=== PATIENT | female | born 1945 | race Caucasian/White ===

== ENCOUNTER 2016-11-20 16:12 | Inpatient (IN) | payer MEDICARE, OTHER ==
[~2016-11-20] VITALS: Ht 165.1 cm; Wt 129.9 kg
[~2016-11-20 16:12] MED LIST: CHOL5000 PO; CREST10T PO; GLIP10TA10 PO; HYDR25TA4 PO; LOSA100T3 PO; MELO7.5T13 PO; METF10002 PO; OMEG-38 PO; PIOG45TA PO; SITA100T12 PO; VITA1CAP PO
[2016-11-20 16:14] VITALS: BP 146/70; PULSE 80; RESP 16; O2SAT 98
[2016-11-20] MEDS ORDERED: 0.9% Sodium Chloride 1,000 ML IV ONE (17:52)
[2016-11-20] MEDS ORDERED: Ondansetron 2 mg/mL 2 mL Inj IVPUSH ONE (17:55)
--- NOTE | 2016-11-20 17:58 | ED.REPORT ---
HPI-General Illness Date of Service Nov 20, 2016 ED Provider: Bryson Henry PA-C She is a 71-year-old female with a history of type II diabetes who presents at the urging of her physician for hyponatremia. She was seen yesterday at [facility] urgent care for cold symptoms. She was diagnosed with sinusitis and prescribed doxycycline. The physician noticed that her sodium level was 121 and referred her to the emergency department. On presentation she continues to complain of cold symptoms including rhinorrhea, stuffy nose, sore throat, nausea and vomiting. She reports 3-4 episodes of nonbloody vomiting and many episodes of watery diarrhea, neither with blood. She states that she "cannot keep any down." She had an episode of dizziness last night when she stood up. She describes her dizziness as an unsteadiness as opposed to the world spinning or presyncope. She reports feeling very fatigued. Denies seizures. Her son denies that she is behaving differently, reduced level of consciousness. Nursing Notes Stated Complaint: FLU SYMPTOMS Chief Complaint: FLU/Cold Symptoms Nursing Notes Reviewed: Yes Allergies: Coded Allergies: atorvastatin (Unverified Allergy, Severe, RASH, 11/20/16) lisinopril (Unverified Allergy, Severe, COUGH, 11/20/16) Scheduled Cholecalciferol (Vitamin D3) (Vitamin D3) 5,000 Unit Capsule 5,000 UNIT PO DAILY Glipizide (Glipizide) 10 Mg Tablet 10 MG PO BIDWM Hydrochlorothiazide (Hydrochlorothiazide) 25 Mg Tablet 25 MG PO DAILY Losartan Potassium (Cozaar) 100 Mg Tablet 100 MG PO DAILY Metformin (Metformin) 500 Mg Tablet 1,500 MG PO DAILYWD Take metformin 1000 mg PO w/ breakfast and 1500 mg PO with dinner Metformin (Metformin) 500 Mg Tablet 1,000 MG PO DAILYWM Take metformin 1000 mg PO w/ breakfast and 1500 mg PO with dinner Kilauea-3/Dha/Epa/Fish Oil (Fish Oil 1,000 mg Softgel) 1 Each Capsule 1 EACH PO BIDWM Pioglitazone (Actos) 45 Mg Tablet 45 MG PO DAILY Rosuvastatin Calcium (Crestor) 10 Mg Tablet 10 MG PO DAILY Sitagliptin Phos (Januvia) 100 Mg Tablet 100 MG PO HS Vitamin B Complex & Vit C No.3 (B Complex with Vitamin C) 1 Each Capsule 1 EACH PO DAILY Scheduled PRN Acetaminophen (Acetaminophen) 325 Mg Tablet 325-650 MG PO Q4H PRN PRN For Fever Carboxymethylcellulos/Glycerin (Refresh Optive Eye Drops) 15 Ml Drops 2 DROP BOTH_EYES Q2H PRN PRN dry eyes General Time Seen by MD: 17:38 Chief Complaint Other (hyponatremia) Past Medical History Smoking History Unknown if Ever Smoker Review of Systems General: Denies fever, chills, malaise. HEENT: Denies congestion, headache, sore throat. Respiratory: Denies dyspnea, cough, shortness of breath, wheezing. Cardiovascular: Denies chest pain, palpitations. Gastrointestinal: Admits vomiting, diarrhea, abdominal pain. Genitourinary: Admits dysuria. Denies frequency, urgency, hematuria. Otherwise as noted in HPI. Physical Exam General: Well appearing, well developed, obese, no acute distress. Head: Atraumatic, normocephalic. Eyes: No scleral icterus or injection. No discharge. Vision grossly intact. ENT: Voice clear, hearing grossly intact. Respiratory: Regular rate and rhythm. Breath sounds present, clear to auscultation and equal bilaterally. No respiratory distress. No increased work of breathing, speaks in complete sentences. Cardiovascular: Regular rate and rhythm, without murmur, gallop or rub. No pedal edema. Gastrointestinal: Obese abdomen non-tender without guarding or rebound. Bowel sounds normoactive. Skin: Warm and dry. Neurological: Grossly nonfocal. Psychological: Alert and oriented. Speech appropriate, linear and logical. Behavior appropriate. Vital Signs Vital Signs Date Time Temp Pulse Resp B/P Pulse Ox O2 Delivery O2 Flow Rate FiO2 11/20/16 22:17 75 15 147/62 98 Room Air 11/20/16 18:15 74 16 146/60 97 Room Air 11/20/16 16:14 36.1 80 16 146/70 98 Room Air Initial VS: Reviewed, Vital signs normal Interpretation & Diagnostics Lab Results Interpretation Result Diagram: 11/20/16225411/20/162254 Test 11/20/16 21:03 11/20/16 22:50 11/20/16 22:55 11/20/16 23:00 Blood Urea Nitrogen 11mg/dL (8-27) Creatinine 0.59mg/dL (0.57-1.00) Estimat Glomerular Filtration Rate 144mL/min (>59) Glucose Level 126mg/dL (60-99) Calcium Level 7.9mg/dL (8.5-10.1) Total Bilirubin 0.5mg/dL (0.0-1.2) Aspartate Amino Transf (AST/SGOT) 95U/L (0-50) Alanine Aminotransferase (ALT/SGPT) 82U/L (0-32) Alkaline Phosphatase 78U/L (25-165) Total Protein 7.2g/dL (6.4-8.4) Albumin 3.2g/dL (3.4-5.0) Urine Random Sodium 40mEq/L Urine Random Potassium 39.5mEq/L Urine Random Chloride 50mEq/L White Blood Count 4.4th/mm3 (3.8-10.1) Red Blood Count 4.44mil/mm3 (3.90-5.20) Hemoglobin 13.5g/dL (12.0-15.6) Hematocrit 38.7% (35.0-46.0) Mean Corpuscular Volume 87.2fL (81-100) Mean Corpuscular Hemoglobin 30.4pg (27.0-35.0) Mean Corpuscular Hemoglobin Concent 34.9% (32.0-37.0) Red Cell Distribution Width 12.9% (12.3-15.4) Platelet Count 184bil/L (150-400) Neutrophils (%) (Auto) 60.1% (40-74) Lymphocytes (%) (Auto) 21.0% (14-46) Monocytes (%) (Auto) 18.3% (4-12) Eosinophils (%) (Auto) 0.2% (0-5) Basophils (%) (Auto) 0.2% (0-3) Band Neutrophils % 0% (1-5) Prothrombin Time 10.2sec (8.1-12.5) Prothromb Time International Ratio 0.95ratio Activated Partial Thromboplast Time 31.5sec (22.8-33.0) Sodium Level 117mEq/L (134-144) Potassium Level 3.5mEq/L (3.5-5.2) Chloride Level 81mEq/L (97-108) Carbon Dioxide Level 25mmol/L (18-29) Magnesium Level 1.4mg/dL (1.6-2.6) Hold Limon Top Tube Received (Received) Urine Color Yellow (YELLOW) Urine Appearance Clear (CLEAR,HAZY) Urine pH 6.5 (5.0-8.0) Urine Specific [place] 1.025 (1.003-1.035) Urine Protein 100mg/dL (NEG,TRACE) Urine Glucose (UA) Negativemg/dL (NEGATIVE) Urine Ketones Negativemg/dL (NEGATIVE) Urine Occult Blood Moderate (NEGATIVE) Urine Nitrite Negative (NEGATIVE) Urine Bilirubin Negative (NEGATIVE) Urine Urobilinogen Normalmg/dL (NORMAL) Urine Leukocyte Esterase Trace (NEGATIVE) Urine RBC 0-2/hpf (0-2) Urine WBC 0-5/hpf (0-5) Urine Epithelial Cells Occasional/hpf (NONE-MOD) Urine Crystals Amorphous urates (NONE Urine Bacteria Moderate/hpf (NONE-FEW) Urine Hyaline Casts None/lpf (NONE) Urine Granular Casts None seen (NONE SEEN) Urine Waxy Casts None seen (NONE SEEN) Urine Red Blood Cell Casts None seen (NONE SEEN) Urine White Blood Cell Casts None seen (NONE SEEN) Urine Mucus Present (None Seen) Urine Trichomonas None seen (NONE SEEN) Urine Yeast None (NONE SEEN) Urinalysis Comment None Urine Culture Reflexed Indicated Re-Eval/Medical Decision Med Decision/Clinical Course 71-year-old referred with hyponatremia, that is actually worsened despite 2 L of normal saline here. Background history not immediately available includes cirrhosis of the liver. She denies current alcohol use. Urine electrolytes pending to evaluate for SIADH. She is admitted now for more IV therapy and evaluation of the source of her hyponatremia. Time of Eval: 23:37 Re-Evaluation/Progress Note: Patient reports feeling significantly better following 1 L of normal saline. She says she has more energy. Ordered CMP to reassess sodium level. Time of Eval: 22:18 Re-Evaluation/Progress Note: Patient rechecked by Dr. Gracia after transfer of care. Discussed with patient lab results, diagnosis, and plan for admit. Patient agrees with plan for care and all questions were addressed. Consultation : Referral / Consult Name: Pearl Adorno MD Consulted With: Hospitalist Call Returned at: 22:34 Product Lead: Agrees with eval, Agrees with plan, Accepts admit Counseled Regarding: Diagnosis, Lab results, Need for admission Discharge & Departure Shift Change Sign-Out Patient Care Transferred: Yes (Dr. Gracia) Discussed Complaint(s): Yes Laboratory Evaluation: Done, results pending Response to Therapy: Improved Primary Impression: Hyponatremia Additional Impressions: Upper respiratory infection Sinusitis Disposition: ADMITTED TO HOSPITAL Discharge Condition All VS Reviewed: Yes Condition: Improved Referrals: Catherine Cuellar MD (PCP) Scribe Attestation Portions of this note were transcribed by Valorie Malloy. I, Dr. Gracia, personally performed the history, physical exam, and medical decision-making; I reviewed and confirmed the accuracy of the information in the transcribed note. Signed by: Mihai Moreira, 11/21/2016, 00:05 copies to: Catherine Cuellar MD, Seth PA-C Nov 20, 2016 17:58 VALORIE MALLOY Nov 20, 2016 23:57 Artis Gracia MD Nov 21, 2016 06:40
[2016-11-20 18:15] VITALS: BP 146/60; PULSE 74; RESP 16; O2SAT 97
[2016-11-20 22:17] VITALS: BP 147/62; PULSE 75; RESP 15; O2SAT 98
[2016-11-20] MEDS ORDERED: 0.9% Sodium Chloride 1,000 ML IV SCH (22:30)
[2016-11-20 23:08] LABS: BASOPHILS % (AUTO) 0.2 % (0-3); EOSINOPHILS % (AUTO) 0.2 % (0-5); MONOCYTES % (AUTO) 18.3 % (4-12); Mean Corpuscular Hemoglobin 30.4 pg (27.0-35.0); Mean Corpuscular Volume 87.2 fL (81-100); NEUTROPHILS % (AUTO) 60.1 % (40-74); Platelet Count 184 bil/L (150-400)
[2016-11-20 23:10] LABS: APPEARANCE,URINE CLEAR (CLEAR,HAZY); COLOR,URINE YELLOW (YELLOW); OCCULT BLOOD,URINE MODERATE (NEGATIVE); PH,URINE 6.5 (5.0-8.0); UROBILINOGEN,URINE NORMAL (NORMAL)
[2016-11-20 23:27] LABS: INR 0.95 ratio
[2016-11-20] MEDS ORDERED: Alum-Mag Hydrox-Simeth 30 mL Suspension PO PRN (23:30)
[2016-11-20] MEDS ORDERED: Ondansetron 2 mg/mL 2 mL Inj IVPUSH PRN (23:30)
[2016-11-20] MEDS ORDERED: Polyethylene Glycol (PEG) 17 Gm Powder PO PRN (23:30)
[2016-11-20 23:38] LABS: Magnesium 1.4 mg/dL (1.6-2.6)
[2016-11-21] VITALS (9 sets, daily range): BP systolic 132–188; BP diastolic 64–83; PULSE 67–81; RESP 14–18; O2SAT 94–97
[2016-11-21] MEDS ORDERED: METF500T4 PO ×2 (00:49)
[2016-11-21] MEDS ORDERED: ACET325T51 PO (00:50)
[2016-11-21] MEDS ORDERED: VITA1CAP16 PO (00:50)
[2016-11-21] MEDS ORDERED: CARB15DR2 BOTH_EYES (00:53)
--- NOTE | 2016-11-21 01:05 | NUR ---
Admit Pt arrived on stretcher from the ED with all belongings. Moved from stretcher to bed independently, alert and oriented x4. Pt on RA sat at 96%. Oriented to room and call light, will monitor.
[2016-11-21] MEDS ORDERED: Magnesium Chloride SR 64 mg ER24 Tablet PO ONE (01:30)
[2016-11-21] MEDS: Heparin 5,000 Unit/mL Inj SUBQ SCH ×4 (02:48→23:56)
[2016-11-21] MEDS: 0.9% Sodium Chloride 1,000 ML IV SCH ×3 (02:48→20:32)
[2016-11-21] MEDS ORDERED: Labetalol 5 mg/mL 4 mL Inj IVPUSH ONE (04:40)
[2016-11-21] MEDS ORDERED: Glucose 40% Oral Gel 15 Gm Tube PO PRN (06:10)
--- NOTE | 2016-11-21 06:24 | PCM.HPMED ---
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 On November 10 patient started to develop mild cold symptoms including runny nose and cough. At this time she was attending a [email or web address] in [place]. Upon returning home from a convention on November 15 patient developed vomiting, nausea, and diarrhea. Initially she was having 1-2 episodes per day of diarrhea and now it is 3-5 episodes per day. Patient complains of a sore low back. She does not report headache, sore throat, shortness of breath, dysuria, or edema. Upon presentation to the emergency department patient received 1 L normal saline , and ondansetron. She reports feeling much better after this, her CMP was checked and found to have a sodium of 118, an additional liter of fluid was given but prior to being complete sodium was rechecked and noted to be 117. Patient feels improved since initial presentation, and continues to mentate normally. Review of Systems: A comprehensive review of systems was conducted with the patient and found to be negative except as above in the History of Present Illness. Allergies Coded Allergies: atorvastatin (Unverified Allergy, Severe, RASH, 11/20/16) lisinopril (Unverified Allergy, Severe, COUGH, 11/20/16) Home Medications Maria M Anthony. [id number] 11/20/2016 11:50 AM 09/12 Start Date Medication Directions Stop Date 08/07/2016 Actos 45 mg tablet TAKE ONE TABLET BY MOUTH ONCE DAILY 06/21/2015 Allerclear 10 mg tablet take 1 tablet by oral route every day as needed for seasonal allergies 08/07/2016 Cozaar 100 mg tablet TAKE ONE TABLET BY MOUTH ONCE DAILY 11/20/2016 doxycycline hyclate 100 mg capsule take 1 capsule by oral route 2 times every day 09/18/2016 econazole 1 % topical cream apply by topical route 2 times every day to the affected and surrounding areas of skin 05/02/2016 ferrous sulfate 325 mg (65 mg iron) tablet take 1 tablet by oral route every day 08/07/2016 glipizide 10 mg tablet TAKE ONE TABLET BY MOUTH TWICE DAILY 08/07/2016 hydrochlorothiazide 25 mg tablet TAKE ONE TABLET BY MOUTH ONCE DAILY 08/07/2016 Januvia 100 mg tablet TAKE ONE TABLET BY MOUTH ONCE DAILY 08/07/2016 metformin 500 mg tablet TAKE TWO TABLETS BY MOUTH IN THE MORNING AND THREE TABLETS BY MOUTH IN THE EVENING 05/02/2016 multivitamin with minerals tablet take 1 tablet by oral route every day with food 01/11/2016 Gelato Fiasco Ultra Test strips test blood sugar 1 by Subcutaneous route every day 10/22/2016 rosuvastatin 10 mg tablet take 1 tablet by oral route every day 08/06/2016 triamcinolone acetonide 0.5 % topical ointment apply by topical route 2 times every day a thin layer to the affected area(s) 06/07/2009 VITAMIN B COMPLEX 08/07/2016 Vitamin D3 5,000 unit tablet take 2 tablet by oral route every week PMH 1. Liver Cirrhosis presumably due to Connell 2. active sleep apnea, has CPAP but does not use it 3. Osteopenia 4. Hyperlipidemia 5. Diabetes mellitus type II, non-insulin using Surgical History 1. 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 [employer] Hx Alcohol Use: Yes (social) Hx Substance Use: No Hx Tobacco Use: Yes Smoking Status: Former Smoker (1/3 pack per day) Years of Smokin Living Arrangement: with Family Exam Vital Signs Vital Sign - Last Date Time Temp Pulse Resp B/P Pulse Ox O2 Delivery O2 Flow Rate FiO2 11/21/16 00:32 36.8 78 14 132/64 97 Room Air Intake and Output 11/20/16 11/20/16 11/21/16 Cumulative From/Thru 15:00 23:00 07:00 11/20/16 16:14 - 11/21/16 00:01 Intake Total 1000 ml 1000 ml 2000 ml Balance 1000 ml 1000 ml 2000 ml Intake Oral 1000 ml 1000 ml IV Total 1000 ml 1000 ml Exam General: No acute distress, obese, well-developed, well-nourished, appropriately interactive HEENT: Normocephalic, atraumatic. External ears without defect. Pupils equal, round, and reactive to light and accommodation. Anicteric sclerae, moist conjunctivae, and no lid lag. Oropharynx free of erythema and cobble stoning with moist mucosa. Neck: Supple with full range of motion. No lymphadenopathy or thyromegaly. Cardiovascular: Regular rate and rhythm with no murmurs, rubs, or gallops appreciated Pulmonary: Clear to auscultation bilaterally with no crackles, wheezes, or rhonchi. Normal respiratory effort with no use of accessory muscles. Abdomen: Bowel tones present, Obese, soft, nontender, nondistended. No hepatosplenomegaly or masses appreciated. Extremities: No clubbing, cyanosis, edema, or lymphadenopathy appreciated. Skin: Normal temperature, turgor, and texture; no rash, ulcers, or subcutaneous nodules appreciated. Neurological: Cranial nerves grossly intact. Normal muscle strength, tone, and bulk. No known gait impairment. Psychiatric: Normal mood and affect. Alert and oriented to person, place, and time. Lab and Diagnostics Result Diagram: 11/20/16225411/20/162254 X-Rays, CTs and MRIs PROCEDURE: X-RAY ACUTE ABDOMINAL SERIES ([id number]) INDICATIONS: NON-INTRACTABLE VOMITING WITH NAUSEA TECHNIQUE: One view chest and two views of the abdomen were acquired. COMPARISON: [facility], CR, CHEST 2VW, 06/13/2007, 16:04. FINDINGS: Surgical changes and devices: None. Chest: Lungs are clear. Heart size is normal. No pleural effusions. No pneumoperitoneum. Abdomen: Bowel gas pattern is normal. No suspicious calcifications. Visualized solid organ contours appear normal. Bones: No suspicious bony lesions. IMPRESSION: No acute process. Dictated by: Thomas Armendariz M.D. 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 1. Hyponatremia, present on admission, acute - Serum sodium tested at urgent care the day prior to presenting to the emergency department was 121, patient had 1 L normal saline upon arrival sodium was rechecked and found to be 118 - Patient mentating normally, suspecting subacute presentation however outpatient record review reveals normal serum sodium levels as recently as April 2016. - Etiology of hyponatremia unclear at this time, it may be a multifactorial process. Possible contributors include loss of electrolytes through vomiting and diarrhea, SIADH from pulmonary infection, thiazide related hyponatremia though this is a chronic medication recent illness could have precipitated effect. - Urine sodium, Serum and urine osmolality are ordered - Due to history of vomiting and diarrhea patient likely hypovolemic therefore normal saline 125 mls per hour infusing - Hold thiazide diuretic 2. Diabetes mellitus type II, non-insulin using, present on admission, chronic - Hemoglobin A1c 6.1 08/07/2016 - Hold home medications - Low dose lispro correctional insulin 3. Hypertension, present on admission, acute on chronic - Continue Cozaar - Treated with IV labetalol for systolic pressure greater than 180 4. Nausea vomiting diarrhea, present on admission, acute - Fluid resuscitation as above - Zofran for nausea - Stool PCR for infectious source - Contact precautions 5. Cough and rhinorrhea, present on admission, acute - Respiratory viral PCR - Droplet precautions Chronic conditions, present on admission: Cirrhosis of the liver due to CONNELL -AST 95, ALT 82, alkaline phosphatase 78 Obstructive sleep apnea - Patient does not use CPAP due to cold air, consider respiratory therapy evaluation for outpatient referral for CPAP evaluation. Hyperlipidemia - Restart Crestor upon discharge Acetaminophen for mild pain when necessary. Bowel regimen Senna and MiraLAX PRN. Zofran when necessary for nausea and vomiting. DVT prophylaxis with sub cutaneous heparin Patient was admitted under inpatient status with expected length of stay greater than 2 midnights due to severity of presenting symptoms, risk of adverse event, and complexity of treatment plan. Pain Evaluation: Adequate Pain Control GI Prophylaxis: Not indicated VTE Prophylaxis: Sub-Q Heparin (Unfractionated) VTE Mechanical Devices: Intermittant Pneumatic CD Resuscitation Status: CPR: Attempt Resuscitation Attending Statement pt seen and examined by myself and agree with above plan. copies to: Catherine Cuellar MD, Erika R DO Nov 21, 2016 00:34 Pearl Adorno MD Nov 24, 2016 14:17
[2016-11-21 07:19] LABS: BASOPHILS % (AUTO) 0.2 % (0-3); EOSINOPHILS % (AUTO) 0 % (0-5); Mean Corpuscular Volume 85.1 fL (81-100); NEUTROPHILS % (AUTO) 63.1 % (40-74); Platelet Count 135 bil/L (150-400)
[2016-11-21] MEDS: Insulin LISPRO 300 Unit/3 mL Inj SUBQ SCH ×4 (08:00→21:39)
[2016-11-21] MEDS ORDERED: Influenza (Adult) Vaccine 0.5 mL Syringe IM ONE (08:30)
[2016-11-21] MEDS ORDERED: Magnesium Sulf 2 Gm/50mL Water 2 GM in IV Premix 1 EACH IV ONE (10:50)
[2016-11-21] MEDS ORDERED: Potassium Chloride 20 mEq SR Tablet PO ONE (14:15)
--- NOTE | 2016-11-21 15:20 | NUR ---
spiritual care: pt request conversational visit. pt shared personal history and professional life. Pt expressed little concern about her medical concern, confidence in her recovery and eagerness for discharge. Planning professional travel. pleasant, engaged. Pt agreeable for prayer and shared that she valued 4 square background from childhood.
--- NOTE | 2016-11-21 16:08 | PCM.PNMED ---
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 Telemetry overnight showed sinus rhythm in 70-80s. Today, she reports that she continues to have diarrhea. She had 2 loose bowel movements today. She no longer has nausea and vomiting. She has a cough and nasal congestion. She had sick exposures at work and at a conference in [place]. Exam Vital Signs Vital Sign - Last Date Time Temp Pulse Resp B/P Pulse Ox O2 Delivery O2 Flow Rate FiO2 11/21/16 10:27 36.8 73 16 146/74 95 Room Air Intake and Output 11/20/16 11/20/16 11/21/16 Cumulative From/Thru 15:00 23:00 07:00 11/20/16 16:14 - 11/21/16 06:14 Intake Total 1000 ml 1100 ml 2100 ml Output Total 800 ml 800 ml Balance 1000 ml 300 ml 1300 ml Intake Oral 1000 ml 100 ml 1100 ml IV Total 1000 ml 1000 ml Output Urine Total 800 ml 800 ml # Bowel Movements 1 1 Exam General: No acute distress, obese, well-developed, well-nourished, appropriately interactive HEENT: Normocephalic, atraumatic. External ears without defect. Anicteric sclerae, moist conjunctivae, and no lid lag. Neck: Supple with full range of motion. . Cardiovascular: Regular rate and rhythm with no murmurs, rubs, or gallops appreciated Pulmonary: Clear to auscultation bilaterally with no crackles, wheezes, or rhonchi. Normal respiratory effort with no use of accessory muscles. Abdomen: Bowel tones present, Obese, soft, nontender, nondistended. Extremities: No clubbing, cyanosis, edema, or lymphadenopathy appreciated. Skin: Normal temperature, turgor, and texture; no rash, ulcers, or subcutaneous nodules appreciated. Neurological: Cranial nerves grossly intact. Normal muscle strength, tone, and bulk. Psychiatric: Normal mood and affect. Alert and oriented to person, place, and time. IVs and Medications Medications Reviewed: Medications were reviewed in detail Lab and Diagnostics Result Diagram: 11/21/16 0650 11/21/16 0650 X-Rays, CTs and MRIs PROCEDURE: X-RAY ACUTE ABDOMINAL SERIES ([id number]) INDICATIONS: NON-INTRACTABLE VOMITING WITH NAUSEA TECHNIQUE: One view chest and two views of the abdomen were acquired. COMPARISON: [facility], CR, CHEST 2VW, 06/13/2007, 16:04. FINDINGS: Surgical changes and devices: None. Chest: Lungs are clear. Heart size is normal. No pleural effusions. No pneumoperitoneum. Abdomen: Bowel gas pattern is normal. No suspicious calcifications. Visualized solid organ contours appear normal. Bones: No suspicious bony lesions. IMPRESSION: No acute process. Dictated by: Thomas Armendariz M.D. 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 1. Influenza B virus -Started 10 day course of Tamiflu -Droplet precautions -Symptomatic care as below 2. Hyponatremia, present on admission, acute - Serum sodium tested at urgent care the day prior to presenting to the emergency department was 121, patient had 1 L normal saline upon arrival sodium was rechecked and found to be 118 - Patient mentating normally, suspecting subacute presentation however outpatient record review reveals normal serum sodium levels as recently as April 2016. - Etiology of hyponatremia unclear at this time, it may be a multifactorial process. Possible contributors include loss of electrolytes through vomiting and diarrhea, SIADH from pulmonary infection, thiazide related hyponatremia though this is a chronic medication recent illness could have precipitated effect, and history of CONNELL. - Due to history of vomiting and diarrhea patient likely hypovolemic therefore normal saline 75 mls per hour infusing - Hold thiazide diuretic 3. Hypomagnesium -Magnesium 1.5 this morning -Repletion with 64 mg PO and 2 g IV magnesium -Monitor with labs 4. Hypokalemia -Potassium 3.1 this morning -Repletion with 40 meq potassium chloride PO -Monitor with labs 5. Diabetes mellitus type II, non-insulin using, present on admission, chronic - Hemoglobin A1c 6.1 08/07/2016 - Hold home medications - Low dose lispro correctional insulin 6. Hypertension, present on admission, acute on chronic - Continue Cozaar - Treated with IV labetalol for systolic pressure greater than 180 7. Nausea vomiting diarrhea, present on admission, acute - Fluid resuscitation as above - Zofran for nausea - Stool PCR for infectious source negative - Contact precautions - See above 8. Cough and rhinorrhea, present on admission, acute - Respiratory viral PCR - Droplet precautions Chronic conditions, present on admission: Cirrhosis of the liver due to CONNELL -AST 95, ALT 82, alkaline phosphatase 78 initially -Continue to monitor Obstructive sleep apnea - Patient does not use CPAP due to cold air, consider respiratory therapy evaluation for outpatient referral for CPAP evaluation. Hyperlipidemia - Restart Crestor upon discharge Acetaminophen for mild pain when necessary. Bowel regimen Senna and MiraLAX PRN. Zofran when necessary for nausea and vomiting. DVT prophylaxis with sub cutaneous heparin GI Prophylaxis: Not indicated VTE Prophylaxis: Sub-Q Heparin (Unfractionated) VTE Mechanical Devices: Intermittant Pneumatic CD Resuscitation Status: CPR: Attempt Resuscitation Attending Statement The patient was seen and examined together with Resident / House-staff on and I agree with the history, exam and plan as outlined in the note above. Ml Lagos DO Nov 21, 2016 14:15 Cecilio Newberry Nov 21, 2016 17:37
[2016-11-21 18:10] LABS: Magnesium 2.2 mg/dL (1.6-2.6)
--- NOTE | 2016-11-21 20:59 | NUR ---
Case Management: IMM explained at 2039, all questions answered. Signed original placed in chart, copy given to patient. Stefany Gilbert RN
--- NOTE | 2016-11-22 00:55 | NUR ---
Pain/telemetry Pt c/o lower back discomfort. K-pad applied to lower back which was helpful per pt. Pt later requested Tylenol for general discomfort. "I just can't get comfortable." Tylenol given and the pt appears to be asleep without s/sx of distress. Tele: SR 60-70s per telemonitor. care ongoing.
[2016-11-22 01:27] VITALS: BP 126/76; PULSE 68; RESP 18; O2SAT 97
[2016-11-22 04:32] VITALS: BP 137/76; PULSE 74; RESP 18; O2SAT 96
[2016-11-22 05:57] VITALS: PULSE 70
[2016-11-22 07:15] LABS: BASOPHILS % (AUTO) 0.3 % (0-3); EOSINOPHILS % (AUTO) 0.3 % (0-5); MONOCYTES % (AUTO) 19.1 % (4-12); Mean Corpuscular Hemoglobin 30.3 pg (27.0-35.0); Mean Corpuscular Volume 89.7 fL (81-100); NEUTROPHILS % (AUTO) 50.8 % (40-74); Platelet Count 148 bil/L (150-400)
[2016-11-22 08:00] VITALS: PULSE 78
[2016-11-22] MEDS: Insulin LISPRO 300 Unit/3 mL Inj SUBQ SCH ×2 (08:00→11:40)
[2016-11-22] MEDS: Heparin 5,000 Unit/mL Inj SUBQ SCH (08:08)
[2016-11-22 09:28] VITALS: BP 144/81; PULSE 75; RESP 18; O2SAT 94
[2016-11-22] MEDS ORDERED: OSLT75C PO (12:32)
--- NOTE | 2016-11-22 12:46 | PCM.DIMED ---
Mariaelena Ralph DO 11/22/16 1246: Discharge Instructions Date of Service Nov 22, 2016 Dates of Hospitalization Nov 20, 2016 at 23:32 Discharge Diagnosis Discharge Diagnosis 1. Influenza B virus 2. Hyponatremia, present on admission, acute 3. Hypomagnesium 4. Hypokalemia 5. Diabetes mellitus type II, non-insulin using, present on admission, chronic 6. Hypertension, present on admission, acute on chronic 7. Nausea vomiting diarrhea, present on admission, acute Medication Instructions Please take all of your Tamiflu pills as instructed. You need to complete ten days of treatment. Diet Diabetic Activity Limited until seen by PCP Call your provider Fever or Chills, Shortness of breath Patient Instructions Your sodium is back to normal. Please have a BMP rechecked at the start of next week. Please stop taking your hydrochlorothiazide. This likely contributed to your low sodium. Your PCP may need to add in another blood pressure medication to take it's place. Please follow up with your PCP at the start of next week. If you start to feel dizzy, confused, unstable in your gate please seek medical attention immediately. Follow-up Provider: Catherine Cuellar MD Follow-up with PCP in: 1 week Vipul Delarosa MD 11/22/16 1300: Discharge Instructions Attending's Statement The patient was seen and examined together with Dr. Ralph on 11/22 and I agree with the history, exam and plan as outlined in the note above. Mariaelena Ralph DO Nov 22, 2016 12:46 Vipul Delarosa MD Nov 22, 2016 13:00
[2016-11-22 13:29] VITALS: BP 151/84; PULSE 74; RESP 18; O2SAT 95
--- NOTE | 2016-11-22 13:38 | NUR ---
Social Work: Initial Assessment / D/C Data: Pt is a 71 y/o female admitted for hyponatremia. Pt's PCP is Dr Cuellar, pt's insurance is Medicare with [employer] [facility]. EMR reviewed. Readmit score is 2, low. D/C orders are in. LIVESTOCK TRUCKER met with pt at bedside, role explained. Pt states she lives in [place] in a single story home with her where she uses no DME. Pt states that she does not drive, has no hx of HH or SNF, no LTC or VA benefits, and is not a caregiver. Pt does not have AD/DPOA and declined info. No further d/c planning needs at this time. LIVESTOCK TRUCKER will continue to follow if needs arise. Assessment: Pt who is independent at baseline. Plan: Pt will d/c home via POV today. No further d/c planning needs at this time. LIVESTOCK TRUCKER will continue to follow if needs arise. VANCE Andres Addendum: 11/22/16 at 1342 by NAGA LAIRD Amended: Links added.
--- NOTE | 2016-11-22 14:35 | NUR ---
Discharge Pt d/c home with daughter in-law at 1418. Pt denied having pain, VSS. Discharge info discussed with pt and repeated to daughter in law when she arrived-per pt request. f/u OP requisition given for repeat [employer] to be done next week. Pt states she is flying to [place] in 3 days and will get it done there on Friday. IV d/c prior to leaving. All personal belongings left with pt.
--- NOTE | 2016-11-22 18:54 | PCM.DC.MED ---
Discharge Summary Date of Service Nov 22, 2016 Dates of Hospitalization Date of Hospital Admission Nov 20, 2016 at 23:32 Date of Discharge: Nov 22, 2016 Providers: Admitting Physician: Pearl Adorno MD Primary Care Physician: Catherine Cuellar MD Attending Physician: Pearl Adorno MD Diagnosis at Time of Discharge Diagnosis at Time of Discharge 1. Influenza B virus 2. Hyponatremia, present on admission, acute 3. Hypomagnesium 4. Hypokalemia 5. Diabetes mellitus type II, non-insulin using, present on admission, chronic 6. Hypertension, present on admission, acute on chronic 7. Nausea vomiting diarrhea, present on admission, acute Procedures XRay, CTs & MRIs PROCEDURE: X-RAY ACUTE ABDOMINAL SERIES ([id number]) INDICATIONS: NON-INTRACTABLE VOMITING WITH NAUSEA TECHNIQUE: One view chest and two views of the abdomen were acquired. COMPARISON: [facility], , CHEST 2VW, 06/13/2007, 16:04. FINDINGS: Surgical changes and devices: None. Chest: Lungs are clear. Heart size is normal. No pleural effusions. No pneumoperitoneum. Abdomen: Bowel gas pattern is normal. No suspicious calcifications. Visualized solid organ contours appear normal. Bones: No suspicious bony lesions. IMPRESSION: No acute process. Dictated by: Thomas Armendariz M.D. on 11/20/2016 at 13:[address] 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 On November 10 patient started to develop mild cold symptoms including runny nose and cough. At this time she was attending a [employer] convention in [place]. Upon returning home from a convention on November 15 patient developed vomiting, nausea, and diarrhea. Initially she was having 1-2 episodes per day of diarrhea and now it is 3-5 episodes per day. Patient complains of a sore low back. She does not report headache, sore throat, shortness of breath, dysuria, or edema. Upon presentation to the emergency department patient received 1 L normal saline , and ondansetron. She reports feeling much better after this, her CMP was checked and found to have a sodium of 118, an additional liter of fluid was given but prior to being complete sodium was rechecked and noted to be 117. 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 1. Influenza B virus -Started 10 day course of Tamiflu -Droplet precautions -Symptomatic care as below 2. Hypovolemic Hyponatremia, present on admission, acute - Serum sodium tested at urgent care the day prior to presenting to the emergency department was 121, patient had 1 L normal saline upon arrival sodium was rechecked and found to be 118 - Patient mentating normally, suspecting subacute presentation however outpatient record review reveals normal serum sodium levels as recently as April 2016. - Etiology of hyponatremia unclear at this time, it may be a multifactorial process. Possible contributors include loss of electrolytes through vomiting and diarrhea, SIADH from pulmonary infection, thiazide related hyponatremia though this is a chronic medication recent illness could have precipitated effect, and history of CONNELL. - Due to history of vomiting and diarrhea patient likely hypovolemic treated with NS. - Stopped thiazide diuretic 3. Hypomagnesium -Magnesium 1.5 this morning -Repletion with 64 mg PO and 2 g IV magnesium -Monitored with labs 4. Hypokalemia -Potassium 3.1 this morning -Repletion with 40 meq potassium chloride PO -Monitored with labs 5. Diabetes mellitus type II, non-insulin using, present on admission, chronic - Hemoglobin A1c 6.1 08/07/2016 - Held home medications - Low dose lispro correctional insulin 6. Hypertension, present on admission, acute on chronic - Continued Cozaar - Treated with IV labetalol for systolic pressure greater than 180 7. Nausea vomiting diarrhea, present on admission, acute - Fluid resuscitation as above - Zofran for nausea - Stool PCR for infectious source negative - Contact precautions - See above Chronic conditions, present on admission: Cirrhosis of the liver due to CONNELL -AST 95, ALT 82, alkaline phosphatase 78 initially -Continued to monitor Obstructive sleep apnea - Patient does not use CPAP due to cold air, consider respiratory therapy evaluation for outpatient referral for CPAP evaluation. Hyperlipidemia - Restarted Crestor upon discharge Acetaminophen for mild pain when necessary. Bowel regimen Senna and MiraLAX PRN. Zofran when necessary for nausea and vomiting. DVT prophylaxis with sub cutaneous heparin Exam Vital Signs (Last) Date Time Temp Pulse Resp B/P Pulse Ox O2 Delivery O2 Flow Rate FiO2 11/22/16 13:29 36.7 74 18 151/84 95 Room Air Exam General: No acute distress, obese, well-developed, well-nourished, appropriately interactive HEENT: Normocephalic, atraumatic. External ears without defect. Anicteric sclerae, moist conjunctivae, and no lid lag. Neck: Supple with full range of motion. Cardiovascular: Regular rate and rhythm with no murmurs, rubs, or gallops appreciated Pulmonary: Clear to auscultation bilaterally with no crackles, wheezes, or rhonchi. Normal respiratory effort with no use of accessory muscles. Abdomen: Bowel tones present, Obese, soft, nontender, nondistended. Extremities: No clubbing, cyanosis, edema, or lymphadenopathy appreciated. Skin: Normal temperature, turgor, and texture; no rash, ulcers, or subcutaneous nodules appreciated. Neurological: Cranial nerves grossly intact. Normal muscle strength, tone, and bulk. Psychiatric: Normal mood and affect. Alert and oriented to person, place, and time. Test 11/20/16 22:50 11/20/16 22:55 11/20/16 23:00 11/21/16 06:50 Urine Random Sodium 40mEq/L Urine Random Potassium 39.5mEq/L Urine Random Chloride 50mEq/L Band Neutrophils % 0% (1-5) Prothrombin Time 10.2sec (8.1-12.5) Prothromb Time International Ratio 0.95ratio Activated Partial Thromboplast Time 31.5sec (22.8-33.0) Hold Limon Top Tube Received (Received) Urine Color Yellow (YELLOW) Urine Appearance Clear (CLEAR,HAZY) Urine pH 6.5 (5.0-8.0) Urine Specific [place] 1.025 (1.003-1.035) Urine Protein 100mg/dL (NEG,TRACE) Urine Glucose (UA) Negativemg/dL (NEGATIVE) Urine Ketones Negativemg/dL (NEGATIVE) Urine Occult Blood Moderate (NEGATIVE) Urine Nitrite Negative (NEGATIVE) Urine Bilirubin Negative (NEGATIVE) Urine Urobilinogen Normalmg/dL (NORMAL) Urine Leukocyte Esterase Trace (NEGATIVE) Urine RBC 0-2/hpf (0-2) Urine WBC 0-5/hpf (0-5) Urine Epithelial Cells Occasional/hpf (NONE-MOD) Urine Crystals Amorphous urates (NONE Urine Bacteria Moderate/hpf (NONE-FEW) Urine Hyaline Casts None/lpf (NONE) Urine Granular Casts None seen (NONE SEEN) Urine Waxy Casts None seen (NONE SEEN) Urine Red Blood Cell Casts None seen (NONE SEEN) Urine White Blood Cell Casts None seen (NONE SEEN) Urine Mucus Present (None Seen) Urine Trichomonas None seen (NONE SEEN) Urine Yeast None (NONE SEEN) Urinalysis Comment None Urine Culture Reflexed Indicated Osmolality 261 (275-300) Test 11/21/16 07:05 11/22/16 06:27 Urine Osmolality 166mOs/kH2O (250-1200) White Blood Count 3.3th/mm3 (3.8-10.1) Red Blood Count 4.19mil/mm3 (3.90-5.20) Hemoglobin 12.7g/dL (12.0-15.6) Hematocrit 37.6% (35.0-46.0) Mean Corpuscular Volume 89.7fL (81-100) Mean Corpuscular Hemoglobin 30.3pg (27.0-35.0) Mean Corpuscular Hemoglobin Concent 33.8% (32.0-37.0) Red Cell Distribution Width 13.7% (12.3-15.4) Platelet Count 148bil/L (150-400) Neutrophils (%) (Auto) 50.8% (40-74) Lymphocytes (%) (Auto) 29.2% (14-46) Monocytes (%) (Auto) 19.1% (4-12) Eosinophils (%) (Auto) 0.3% (0-5) Basophils (%) (Auto) 0.3% (0-3) Sodium Level 135mEq/L (134-144) Potassium Level 3.6mEq/L (3.5-5.2) Chloride Level 99mEq/L (97-108) Carbon Dioxide Level 23mmol/L (18-29) Blood Urea Nitrogen 8mg/dL (8-27) Creatinine 0.71mg/dL (0.57-1.00) Estimat Glomerular Filtration Rate 116mL/min (>59) Glucose Level 120mg/dL (60-99) Calcium Level 8.0mg/dL (8.5-10.1) Magnesium Level 2.2mg/dL (1.6-2.6) Total Bilirubin 0.6mg/dL (0.0-1.2) Aspartate Amino Transf (AST/SGOT) 76U/L (0-50) Alanine Aminotransferase (ALT/SGPT) 72U/L (0-32) Alkaline Phosphatase 82U/L (25-165) Total Protein 6.5g/dL (6.4-8.4) Albumin 3.1g/dL (3.4-5.0) Discharge Medications Discharge Medications Cholecalciferol (Vitamin D3) (Vitamin D3) 5,000 Unit Capsule 5,000 UNIT PO DAILY (Reported) Glipizide (Glipizide) 10 Mg Tablet 10 MG PO BIDWM (Reported) Losartan Potassium (Cozaar) 100 Mg Tablet 100 MG PO DAILY (Reported) Metformin (Metformin) 500 Mg Tablet 1,500 MG PO DAILYWD (Reported) Take metformin 1000 mg PO w/ breakfast and 1500 mg PO with dinner Metformin (Metformin) 500 Mg Tablet 1,000 MG PO DAILYWM (Reported) Take metformin 1000 mg PO w/ breakfast and 1500 mg PO with dinner [place]-3/Dha/Epa/Fish Oil (Fish Oil 1,000 mg Softgel) 1 Each Capsule 1 EACH PO BIDWM (Reported) Oseltamivir Phosphate (Tamiflu) 10 Cap/Pkg Capsule 75 MG PO BID Prescribed by: HOLLY BEST DO Pioglitazone (Actos) 45 Mg Tablet 45 MG PO DAILY (Reported) Rosuvastatin Calcium (Crestor) 10 Mg Tablet 10 MG PO DAILY (Reported) Sitagliptin Phos (Januvia) 100 Mg Tablet 100 MG PO HS (Reported) Vitamin B Complex & Vit C No.3 (B Complex with Vitamin C) 1 Each Capsule 1 EACH PO DAILY (Reported) As needed Acetaminophen (Acetaminophen) 325 Mg Tablet 325-650 MG PO Q4H PRN PRN For Fever (Reported) Carboxymethylcellulos/Glycerin (Refresh Optive Eye Drops) 15 Ml Drops 2 DROP BOTH_EYES Q2H PRN PRN dry eyes (Reported) Additional med instructions Please take all of your Tamiflu pills as instructed. You need to complete ten days of treatment. Followup Plan Discharge Diet: Diabetic Discharge Activity: Limited until seen by PCP Patient Instructions Your sodium is back to normal. Please have a BMP rechecked at the start of next week. Please stop taking your hydrochlorothiazide. This likely contributed to your low sodium. Your PCP may need to add in another blood pressure medication to take it's place. Please follow up with your PCP at the start of next week. If you start to feel dizzy, confused, unstable in your gate please seek medical attention immediately. Follow-up Provider: Catherine Cuellar MD Follow-up with PCP in: 1 week Attending Statement The patient was seen and examined together with Dr. Best on 11/22 and I agree with the history, exam and plan as outlined in the note above Holly Best DO Nov 22, 2016 18:54 Vipul Delarosa MD Nov 22, 2016 23:26
== END 2016-11-22 14:15 | disposition home or self-care (01) | DRG 866 ==
LOC: SED 16:12 → MPC 23:32 → OBSVTOIN 23:32
PROVIDERS: ADMIT Specialist; ATTEND Specialist
DX: J10.2 Influenza due to other identified influenza virus with gastrointestinal manifestations (principal); E87.1 Hypo-osmolality and hyponatremia; Z79.84 Long term (current) use of oral hypoglycemic drugs; Z87.891 Personal history of nicotine dependence; E11.9 Type 2 diabetes mellitus without complications; I10 Essential (primary) hypertension; R11.2 Nausea with vomiting, unspecified; R19.7 Diarrhea, unspecified; E78.5 Hyperlipidemia, unspecified; G47.33 Obstructive sleep apnea (adult) (pediatric)

== ENCOUNTER 2017-01-01 08:55 | Inpatient (IN) | payer MEDICARE, OTHER ==
[2017-01-01] VITALS (8 sets, daily range): BP systolic 130–186; BP diastolic 65–82; PULSE 95–114; RESP 16–24; O2SAT 94–97
[~2017-01-01] VITALS: Ht 165.1 cm; Wt 125.8 kg
[~2017-01-01 08:55] MED LIST changes: +ACET325T51 PO; +CARB15DR2 BOTH_EYES; -HYDR25TA4 PO; -MELO7.5T13 PO; -METF10002 PO; +METF500T4 PO; +OSLT75C PO; -VITA1CAP PO; +VITA1CAP16 PO
[2017-01-01] MEDS ORDERED: PIOG45TA18 PO (09:21)
--- NOTE | 2017-01-01 09:35 | ED.REPORT ---
HPI-General Illness Date of Service Jan 01, 2017 ED Provider: Neal Edward MD 71 y/o female with a hx of NIDDM and Non-alcoholic steatohepatitis presents to the ED via EMS c/o generalized weakness, onset 1 week ago. Pt also complains of headache, non-productive cough, mild back pain, mild neck pain laterally, myalgia, chills, nausea, vomiting. She also complains of diarrhea 3x per day. Pt denies abdominal pain, chest pain, dysuria, hematemesis, bloody stools. As per the , the pt has been SOB, mostly at night. Nursing Notes Stated Complaint: WEAKNESS Chief Complaint: General Complaint Nursing Notes Reviewed: Yes Allergies: Coded Allergies: atorvastatin (Unverified Allergy, Severe, RASH, 01/01/17) lisinopril (Unverified Allergy, Severe, COUGH, 01/01/17) Scheduled Cholecalciferol (Vitamin D3) (Vitamin D3) 5,000 Unit Capsule 5,000 UNIT PO FRI, UR Glipizide (Glipizide) 10 Mg Tablet 10 MG PO BIDWM Losartan Potassium (Cozaar) 100 Mg Tablet 100 MG PO DAILY Metformin (Metformin) 500 Mg Tablet 1,500 MG PO DAILYWD Metformin (Metformin) 500 Mg Tablet 1,000 MG PO DAILYWM Pioglitazone (Pioglitazone) 45 Mg Tablet 45 MG PO DAILY Rosuvastatin Calcium (Crestor) 10 Mg Tablet 10 MG PO DAILY Sitagliptin Phos (Januvia) 100 Mg Tablet 100 MG PO HS Vitamin B Complex & Vit C No.3 (B Complex with Vitamin C) 1 Each Capsule 1 EACH PO DAILY Scheduled PRN Acetaminophen (Acetaminophen) 325 Mg Tablet 325-650 MG PO Q4H PRN PRN For Fever Carboxymethylcellulos/Glycerin (Refresh Optive Eye Drops) 15 Ml Drops 2 DROP BOTH_EYES Q2H PRN PRN dry eyes General Time Seen by MD: 09:14 Chief Complaint Weakness Hx Obtained From: Patient, EMS Arrived By: Ambulance Sudden in Onset?: No Onset Occurred: 1 week ago Symptom Duration: Since onset Location: : Head Quality: Painful Severity: Current: Mild Severity: Maximum: Mild Recent Healthcare: Recent doctor visit Similar Sx Previous: No Past Medical History Past Medical History Hx hyponatremia KAHN Reports: Diabetes mellitus Past Surgical History none reported Smoking History Former Smoker Ambulatory Status Independent Review of Systems Full Review of Systems Constitutional: Reports: Chills, Weakness - generalized Respiratory: Reports: Non-productive cough, Denies: Shortness of breath Cardiovascular: Denies: Chest pain GI: Reports: Diarrhea, Nausea, Vomiting, Denies: Abdominal pain, Bloody/tarry stool, Hematemesis Female: Denies: Dysuria Musculoskeletal: Reports: Back pain (Mild), Myalgia, Neck pain (Mild) Neurologic: Reports: Headache Complete sys rev & neg: except as marked. Physical Exam Vital Signs Vital Signs Date Time Temp Pulse Resp B/P Pulse Ox O2 Delivery O2 Flow Rate FiO2 01/01/17 10:48 38.7 95 16 138/65 94 Room Air 01/01/17 09:05 38.7 114 16 133/73 97 Room Air Initial VS: Reviewed, Vital signs abnormal Head / Eyes: Atraumatic, Normocephalic, PERRL ENT: Mucous membranes moist, Conjunctiva normal, No scleral icterus Extremities: Vascular intact, Neuro intact, No swelling, No tenderness Skin: Warm, Dry, No cyanosis Neurologic: Alert, Oriented, Nonfocal Psychiatric: Mood/affect normal, Behavior normal, Normal thought content General/Constitutional: Awake, Alert, No acute distress, Cooperative, Not toxic appearing Neck: Supple, No meningismus, Full range of motion Meningeal Signs / ROM: Negative: Brudzinski's positive, Kernig's positive Respiratory / Chest: Atraumatic, Breath sounds NL, Breath sounds = bilat, No respiratory distress, No rales, No rhonchi, No wheezing, No retractions Cardiovascular: Regular rhythm, Heart sounds NL, No murmurs Heart Rate / Rhythm: Positive: Tachycardia Abdomen: Atraumatic, Soft, Non-tender Interpretation & Diagnostics Lab Results Interpretation Result Diagram: 01/01/17 0943 01/01/17 0943 Test 01/01/17 09:43 01/01/17 11:05 01/01/17 11:47 White Blood Count 10.6th/mm3 (3.8-10.1) Red Blood Count 4.04mil/mm3 (3.90-5.20) Hemoglobin 12.7g/dL (12.0-15.6) Hematocrit 37.0% (35.0-46.0) Mean Corpuscular Volume 91.6fL (81-100) Mean Corpuscular Hemoglobin 31.4pg (27.0-35.0) Mean Corpuscular Hemoglobin Concent 34.3% (32.0-37.0) Red Cell Distribution Width 14.5% (12.3-15.4) Platelet Count 174bil/L (150-400) Neutrophils (%) (Auto) 82.9% (40-74) Lymphocytes (%) (Auto) 4.5% (14-46) Monocytes (%) (Auto) 11.6% (4-12) Eosinophils (%) (Auto) 0% (0-5) Basophils (%) (Auto) 0.2% (0-3) Prothrombin Time 10.6sec (8.1-12.5) Prothromb Time International Ratio 0.99ratio Sodium Level 129mEq/L (134-144) Potassium Level 4.3mEq/L (3.5-5.2) Chloride Level 90mEq/L (97-108) Carbon Dioxide Level 19mmol/L (18-29) Blood Urea Nitrogen 24mg/dL (8-27) Creatinine 1.13mg/dL (0.57-1.00) Estimat Glomerular Filtration Rate 68mL/min (>59) Glucose Level 77mg/dL (60-99) Calcium Level 9.1mg/dL (8.5-10.1) Magnesium Level 1.4mg/dL (1.6-2.6) Total Bilirubin 2.0mg/dL (0.0-1.2) Aspartate Amino Transf (AST/SGOT) 61U/L (0-50) Alanine Aminotransferase (ALT/SGPT) 52U/L (0-32) Alkaline Phosphatase 153U/L (25-165) Troponin T < 0.010ug/L (0.0-0.011) Pro-B-Type Natriuretic Peptide 619.1pg/mL (0-301) Total Protein 7.8g/dL (6.4-8.4) Albumin 3.0g/dL (3.4-5.0) Lipase 39U/L (13-60) Lactic Acid Level 0.8mmol/L (0.4-2.0) Urine Color Yellow (YELLOW) Urine Appearance Slightly cloudy Urine pH 6.0 (5.0-8.0) Urine Specific [place] 1.010 (1.003-1.035) Urine Protein 30mg/dL (NEG,TRACE) Urine Glucose (UA) Negativemg/dL (NEGATIVE) Urine Ketones Negativemg/dL (NEGATIVE) Urine Occult Blood Moderate (NEGATIVE) Urine Nitrite Positive (NEGATIVE) Urine Bilirubin Negative (NEGATIVE) Urine Urobilinogen Normalmg/dL (NORMAL) Urine Leukocyte Esterase Moderate (NEGATIVE) Urine RBC 0-2/hpf (0-2) Urine WBC >50/hpf (0-5) Urine Epithelial Cells Few/hpf (NONE-MOD) Urine Crystals None seen (NONE SEEN) Urine Bacteria Many/hpf (NONE-FEW) Urine Hyaline Casts None/lpf (NONE) Urine Granular Casts None seen (NONE SEEN) Urine Waxy Casts None seen (NONE SEEN) Urine Red Blood Cell Casts None seen (NONE SEEN) Urine White Blood Cell Casts None seen (NONE SEEN) Urine Mucus None seen (None Seen) Urine Trichomonas None seen (NONE SEEN) Urine Yeast None (NONE SEEN) Urinalysis Comment None Urine Culture Reflexed Indicated ECG Interpretation ECG Interpretation: Sinus tachycardia. Rate: 106 No STT changes Time: 09:54 Interpreted by: ED physician X-Ray Chest Interpretation Chest Xray Interpretation: IMPRESSION: 1. Pulmonary vascular congestion. 2. Cardiomegaly. 3. Vague diffuse density within the left hemithorax may be related to superimposed breast tissue. However, a pleural effusion may have this appearance. Standard upright 2 views of the chest would be helpful for better evaluation. Dictated by: Ethan Poole M.D. on 01/01/2017 at 9:20 Approved by: Ethan Poole M.D. on 01/01/2017 at 9:21 View: Portable, 1 view Interpretation / Wet Read by: Interpret - Radiologist Re-Eval/Medical Decision Med Decision/Clinical Course 71-year-old female history of KAHN and DM with recent admission for dehydration and hyponatremia presenting with nausea vomiting diarrhea and weakness. She reports she is unable to get out of bed today. On evaluation she required 2 person assist to get to the commode. Urine suggests UTI. Her labs are stable. Given her UTI and her excessive weakness, she will be admitted to the hospital. Given Rocephin. Blood cultures sent. Source of Hx: Old records Time of Eval: 14:27 Re-Evaluation/Progress Note: Pt rechecked. Discussed lab and imaging results and diagnosis. Informed the pt of the plan to admit. Pt understands and agrees with plan. Consultation : Referral / Consult Name: Artis Martinez MD Consulted With: Hospitalist Call Returned at: 14:24 Hydrometeorologist: Will see patient, Agrees with eval, Agrees with plan, Accepts admit Counseled Regarding: Diagnosis, Lab results, Need for admission Discharge & Departure Primary Impression: Urinary tract infection Urinary tract infection type: site unspecified Hematuria presence: without hematuria Qualified Code: N39.0 - Urinary tract infection, site not specified Additional Impression: Weakness Disposition: ADMITTED TO HOSPITAL Discharge Condition All VS Reviewed: Yes Referrals: Catherine Cuellar MD (PCP) Scribe Attestation Portions of this note were transcribed by Salvador Rivera and Steve Cole. I, , personally performed the history, physical exam and medical decision-making;I reviewed and confirmed the accuracy of the information in the transcribed note. Signed by Salvador Rivera and Mihai Rubio. 01/01/17 1430 copies to: Catherine Cuellar MD, Ben M MD Jan 01, 2017 09:35 Salvador Rivera Jan 01, 2017 09:46 STEVE COLE Jan 01, 2017 10:21
[2017-01-01] MEDS ORDERED: 0.9% Sodium Chloride 500 ML IV ONE (09:43)
[2017-01-01] MEDS ORDERED: Ondansetron 2 mg/mL 2 mL Inj IVPUSH PRN ×3 (09:45→14:45)
[2017-01-01 09:55] LABS: BASOPHILS % (AUTO) 0.2 % (0-3); EOSINOPHILS % (AUTO) 0 % (0-5); MONOCYTES % (AUTO) 11.6 % (4-12); Mean Corpuscular Hemoglobin 31.4 pg (27.0-35.0); Mean Corpuscular Volume 91.6 fL (81-100); NEUTROPHILS % (AUTO) 82.9 % (40-74); Platelet Count 174 bil/L (150-400)
[2017-01-01 09:58] LABS: INR 0.99 ratio
--- NOTE | 2017-01-01 10:22 | DRSVH ---
PROCEDURE: X-RAY CHEST ONE VIEW, PORTABLE ([id number]) INDICATIONS: dyspnea TECHNIQUE: One view of the chest was acquired. COMPARISON: [facility], CR, XR ABD ACUTE SERIES 3VW, 11/20/2016, 12:57. FINDINGS: Surgical changes and devices: None. Lungs and pleura: There has been interval development of a vague density within the left lung, which is fairly diffuse. The pulmonary vasculature is prominent. Mediastinum: Mediastinal contours appear normal. Heart size is enlarged. Bones and chest wall: No suspicious bony lesions. Overlying soft tissues appear unremarkable. IMPRESSION: 1. Pulmonary vascular congestion. 2. Cardiomegaly. 3. Vague diffuse density within the left hemithorax may be related to superimposed breast tissue. H owever, a pleural effusion may have this appearance. Standard upright 2 views of the chest would be helpful for better evaluation. Dictated by: Ethan Poole M.D. on 01/01/2017 at 9:20 Approved by: Ethan Poole M.D. on 01/01/2017 at 9:21
[2017-01-01 10:31] LABS: Lipase 39 U/L (13-60); Magnesium 1.4 mg/dL (1.6-2.6); TROPONIN T < 0.010 ug/L (0.0-0.011)
[2017-01-01 12:33] LABS: APPEARANCE,URINE SLIGHTLY CLOUDY (CLEAR,HAZY); COLOR,URINE YELLOW (YELLOW); OCCULT BLOOD,URINE MODERATE (NEGATIVE)
[2017-01-01 12:34] LABS: UROBILINOGEN,URINE NORMAL (NORMAL)
[2017-01-01] MEDS ORDERED: cefTRIAXone Inj 2,000 MG in Dextrose 5% Minibag Plus 50 ML IV ONE (12:50)
[2017-01-01] MEDS ORDERED: Alum-Mag Hydrox-Simeth 30 mL Suspension PO PRN ×2 (14:30→14:45)
[2017-01-01] MEDS ORDERED: Polyethylene Glycol (PEG) 17 Gm Powder PO PRN (14:45)
--- NOTE | 2017-01-01 15:48 | NUR ---
Admit [facility] Pt arrived on [facility] at approx 1530 accompanied by , arrived with all belongings. Pt arrived SL, on RA, reporting no pain but has nausea, was unable to stand for standing weight so bed weight attained. Admit and assessment to follow. Care continues.
[2017-01-01] MEDS: Lactated Ringer's 1,000 ML IV SCH (15:51)
--- NOTE | 2017-01-01 17:06 | NUR ---
HYPOGLYCEMIC EPISODE P: Patient stated feelings of nausea. Pt was shivering and stated she was very cold. Blood sugar was checked at 1640 and was 46. I: made aware. Pt was given 15 mL of D50 through her IV at 1645. E: Blood sugar was rechecked at 1700 and was 80. Pt stated she feels better.
--- NOTE | 2017-01-01 17:36 | PCM.HPMED ---
Subjective Date of Service Jan 01, 2017 Primary Provider: Admitting Physician: Artis Martinez MD Primary Care Physician: Catherine Cuellar MD Attending Physician: Artis Martinez MD Admit Status: From the Emergency Department, Full Admit, Admit to Green Team Chief Complaint: "I fell out of bed and I could not get up" History of Present Illness: The patient is a 71-year-old obese white female with history of type II diabetes mellitus and nonalcoholic steatohepatitis who has been having generalized weakness for approximately 1 week. She also has been complaining of headache, nonproductive cough, mild back pain, mild neck pain on the sides of her neck, myalgias, chills, nausea and vomiting without any hematemesis. She also complains of some diarrhea without any hematochezia or melena 3 times a day. She has no abdominal pain, no chest pain, no dysuria. He has also been short of breath mostly at night. Patient fell out of bed this morning and could not get up. Her called 911 and she was brought to [facility] emergency room by EMS services. She was evaluated by Dr. Neal Edward who performed a urinalysis which showed greater than 50 white blood cells per power field moderate leukocyte esterase and positive nitrite. The patient's serum white blood cell count was elevated at 10.6 and the patient continued to have high fever. The patient therefore was admitted to the hospitalist service for further evaluation and treatment. Review of Systems: General: Patient is in no apparent distress. She is lying supine in bed and complains of generalized weakness. HEENT: Patient has a headache which is mild. The patient has no diplopia, patient has no changes in vision. Patient has no problems with their ears, nose or throat. Patient has no known dental problems. Patient has no pharyngitis or history of thrush. Neck: Patient has no stiffness in the neck. Patient has no lymphadenopathy. Patient has no other problems with their neck. Pulmonary: Patient has no shortness of breath, no cough, no expectoration of sputum. Patient has no pleurisy. Patient has no chest pain. Patient has no history of asthma or COPD. Cardiovascular: Patient has no chest pain. Patient has no history of heart murmur. Patient has no palpitations. Patient has no history of myocardial infarction. Patient has no history of coronary artery disease. Gastrointestinal: Patient has no history of hepatitis A, B or C. Patient has no history of peptic ulcer disease. Patient has no history of gastroesophageal reflux disease. Patient has had nausea, vomiting, or diarrhea 2-3 times prior to admission. Patient has no history of hematemesis, hematochezia, or melena. Patient has no history of colitis. Renal: Patient has no history of kidney disease. No history of kidney stones. Genitourinary: Patient has no history of dysuria or frequency. Patient does have stress incontinence and does wear pads. Patient has no previous history of genitourinary problems. Musculoskeletal: Patient has no history of muscular skeletal problems. Neurologic: Patient has no history of stroke, no history of seizure, no history of TIA. Psychiatric: Patient has no history of psychiatric problems. The remainder of the entire review of systems was reviewed with patient and is as mentioned above otherwise negative. Allergies Coded Allergies: atorvastatin (Unverified Allergy, Severe, RASH, 01/01/17) lisinopril (Unverified Allergy, Severe, COUGH, 01/01/17) Home Medications Scheduled Cholecalciferol (Vitamin D3) (Vitamin D3) 5,000 Unit Capsule 5,000 UNIT PO [facility] Glipizide (Glipizide) 10 Mg Tablet 10 MG PO BIDWM Losartan Potassium (Cozaar) 100 Mg Tablet 100 MG PO DAILY Metformin (Metformin) 500 Mg Tablet 1,500 MG PO DAILYWD Metformin (Metformin) 500 Mg Tablet 1,000 MG PO DAILYWM Pioglitazone (Pioglitazone) 45 Mg Tablet 45 MG PO DAILY Rosuvastatin Calcium (Crestor) 10 Mg Tablet 10 MG PO DAILY Sitagliptin Phos (Januvia) 100 Mg Tablet 100 MG PO HS Vitamin B Complex & Vit C No.3 (B Complex with Vitamin C) 1 Each Capsule 1 EACH PO DAILY Scheduled PRN Acetaminophen (Acetaminophen) 325 Mg Tablet 325-650 MG PO Q4H PRN PRN For Fever Carboxymethylcellulos/Glycerin (Refresh Optive Eye Drops) 15 Ml Drops 2 DROP BOTH_EYES Q2H PRN PRN dry eyes PMH The patient has a history of hyponatremia. The patient had a sodium of 121 during the previous admission. KAHN with cirrhosis Diabetes mellitus Surgical History Patient had all 4 wisdom teeth removed. She believes she had an appendectomy in 1967. Family History Her father at the age 75 from "natural causes". Her mother at age 70 from "natural causes". Patient has 1 sister who is a year younger and who is healthy Patient has 2 brothers who are healthy Social History Hx Alcohol Use: Yes (The patient states she drinks probably 2-3 glasses of red wine per month.) Hx Substance Use: No Hx Tobacco Use: Yes Smoking Status: Former Smoker (The patient states she quit smoking 45 years ago. She used to smoke one half pack per day.) Living Arrangement: with Family (The patient lives with her in [place].) Additional Information The patient was born in [facility]. She went to [employer] in [facility]. She graduated high school and went to the [employer] for approximately 2 years. She did not get a degree. 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 They have been for 48 years. 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 She has 2 children one daughter she knows 45 and one son Hawk who is 43 she now works in sales and Hawk is a independent driver. Patient currently lives with her in [place], [place]. Exam Vital Signs Vital Sign - Last Date Time Temp Pulse Resp B/P Pulse Ox O2 Delivery O2 Flow Rate FiO2 01/01/17 15:51 37.1 112 24 156/80 96 Room Air Exam General: Patient is in no apparent distress however she appears very lethargic. Bedside glucose test by Accu-Chek was only 46. Patient however was able to give me her whole history and remained alert and oriented until she was given D50. HEENT: Head is atraumatic and normocephalic. Eyes: Pupils are equally round and reactive to light and accommodation. Extraocular muscles are intact. Sclera are white, anicteric. Subconjunctival mucosa is pink. Ears and nose are unremarkable. Oropharynx: There is no mucosal lesions, there is no thrush, there is no pharyngitis. Neck: Is supple, there are no nodes, or masses or tenderness. Chest: Is clear to auscultation and percussion. There are no rales, rhonchi, wheezes or rubs. Heart: Rate, rhythm is regular. There is no murmur, rub or gallop. Abdomen: Good bowel sounds are present. Abdomen is morbidly obese, soft, nontender, no organomegaly or masses were appreciated. Extremities: Are symmetrical and well perfused. There is no edema, there is no cellulitis, no rash. Neurologic: There are no focal neurological deficits. Cranial nerves II through XII are intact. There are no sensory or motor deficits. However, patient is very lethargic. Psychiatric: Patients mood is calm and shows no sign of agitation. Genital: Deferred Rectal: Deferred Lab and Diagnostics Result Diagram: 01/01/17 0943 01/01/17 0943 Microbiology Blood and urine cultures are pending. X-Rays, CTs and MRIs PROCEDURE: X-RAY CHEST ONE VIEW, PORTABLE ([id number]) INDICATIONS: dyspnea TECHNIQUE: One view of the chest was acquired. COMPARISON: [facility], CR, XR ABD ACUTE SERIES 3VW, 11/20/2016, 12 :57. FINDINGS: Surgical changes and devices: None. Lungs and pleura: There has been interval development of a vague density within the left lung, which is fairly diffuse. The pulmonary vasculature is prominent. Mediastinum: Mediastinal contours appear normal. Heart size is enlarged. Bones and chest wall: No suspicious bony lesions. Overlying soft tissues appear unremarkable. IMPRESSION: 1. Pulmonary vascular congestion. 2. Cardiomegaly. 3. Vague diffuse density within the left hemithorax may be related to superimposed breast tissue. However, a pleural effusion may have this appearance. Standard upright 2 views of the chest would be helpful for better evaluation. Dictated by: Ethan Poole M.D. on 01/01/2017 at 9:20 Approved by: Ethan Poole M.D. on 01/01/2017 at 9:21 Assessment & Plan The patient is a 71-year-old obese white female with history of type II diabetes mellitus and nonalcoholic steatohepatitis who has been having generalized weakness for approximately 1 week. She also has been complaining of headache, nonproductive cough, mild back pain, mild neck pain on the sides of her neck, myalgias, chills, nausea and vomiting without any hematemesis. She also complains of some diarrhea without any hematochezia or melena 3 times a day. She has no abdominal pain, no chest pain, no dysuria. He has also been short of breath mostly at night. Patient fell out of bed this morning and could not get up. Her called 911 and she was brought to [facility] emergency room by EMS services. She was evaluated by Dr. Neal Edward who performed a urinalysis which showed greater than 50 white blood cells per power field moderate leukocyte esterase and positive nitrite. The patient's serum white blood cell count was elevated at 10.6 and the patient continued to have high fever. The patient therefore was admitted to the hospitalist service for further evaluation and treatment. # Urinary tract infection with sepsis and ongoing fever even after receiving antibiotics in the emergency room - Infection was present at the time of admission and is ongoing - We will continue Rocephin as fever is expected with pyelonephritis. I suspect patient has pyelonephritis. - Check blood and urine cultures ordered in the emergency room - Check serial lactic acid levels - Gentle IV hydration due to patient's age and elevated BNP at baseline. # Hyponatremia - Present at the time of admission - Patient had a sodium level of 121 the last admission and it is 128 this admission. - Continue IV fluids with lactated Ringer's for now - Check labs in a.m. and continue to closely monitor patient's electrolytes # Nonalcoholic steatohepatitis with cirrhosis. - Avoid hepatotoxic medications. - Monitor liver function tests closely # Type II diabetes mellitus present time of admission and ongoing hypoglycemia at the time of admission with a blood sugar 46 on the floor. - Sliding-scale insulin coverage ordered for blood sugars before meals and at bedtime - Continue home medications when blood sugar is more stable - Check hemoglobin A1c - 1 amp of D50 given after her blood sugar was found to be 46. # Disposition: Patient will likely be here more than 2 midnights for the evaluation and treatment of the above conditions. Therefore, patient was admitted as an inpatient. Pain Evaluation: Adequate Pain Control GI Prophylaxis: Proton Pump Inhibitor VTE Prophylaxis: Sub-Q Enoxaparin VTE Mechanical Devices: Intermittant Pneumatic CD Resuscitation Status: CPR: Attempt Resuscitation Artis Martinez MD Jan 01, 2017 17:36
--- NOTE | 2017-01-01 18:17 | NUR ---
Temp/BP/HR elevation At 1800 [employer] reported following VS: Temp 103.1/39.5, BP 186/82, HR 111, and RR's 22. PRN tylenol given and MD notified via cookpage. Awaiting further orders from . Continuing to monitor.
[2017-01-01] MEDS ORDERED: Magnesium Sulf 4 Gm/100 mL H2O 4 GM in IV Premix 1 EACH IV ONE (19:10)
[2017-01-01] MEDS: Nystatin 100,000 Unit/Gm 15 Gm Powder TOPICAL SCH (20:41)
[2017-01-01] MEDS: Insulin Human REGular 300 Unit/3 mL Inj SUBQ SCH (21:12)
--- NOTE | 2017-01-01 21:41 | DRSVH ---
PROCEDURE: US RENAL SONOGRAM INDICATIONS: 71 year-old female with pyelonephritis. TECHNIQUE: Real-time scanning was performed of the kidneys and bladder, with image documentation. COMPARISON: [facility], US, US ABDOMEN, 12/13/2016, 8:04. FINDINGS: Kidneys: Kidneys are normal in size. Right kidney measures 13.0 cm long; left kidney measures 12.9 cm long. Right renal cortical thickness is 2.3 cm; left renal cortical thickness is 2.0 cm. Renal c ortical echotexture is normal. No hydronephrosis or nephrolithiasis. No suspicious solid mass lesio ns. Bladder: Incompletely distended at the time of scanning, and therefore unable to be fully evaluated. Miscellaneous: No free pelvic fluid. IMPRESSION: No sonographic evidence for pyonephrosis. Dictated by: Jacob Cm M.D. on 01/01/2017 at 21:32 Approved by: Jacob Cm M.D. on 01/01/2017 at 21:35
[2017-01-02] VITALS (8 sets, daily range): BP systolic 123–164; BP diastolic 64–85; PULSE 91–105; RESP 16–22; O2SAT 92–98
[2017-01-02] MEDS: Lactated Ringer's 1,000 ML IV SCH ×3 (00:41→21:07)
--- NOTE | 2017-01-02 03:31 | PCM.PNMED ---
Subjective Date of Service Jan 02, 2017 Subjective Nurse called reporting positive blood cultures showing gram negative Plan Add antipseudomonal coverage. Stop Ceftriaxone and start Cefepime IV - consider a second antipseudomonal coverage if no improvement - follow identity of cultures Vipul Delarosa MD Jan 02, 2017 03:31
[2017-01-02] MEDS: Cefepime Inj 2,000 MG in Dextrose 5% Minibag Plus 100 ML IV SCH ×2 (03:45→15:38)
--- NOTE | 2017-01-02 04:13 | NUR ---
SKIN Pt has redness under abdominal folds and groin folds. Nystatin powder applied during evening. During skin assessment, RN noticed some blood under pts pannus. Pt has a wound medially under pannus. Pt states, "it's from my appendectomy, from , it bleeds sometimes." Wound cleansed and tefla dressing applied over it. Wound consult ordered to assess for further treatment if needed. Continue to monitor. Call light in reach. Bed alarm on. Pts in room. Intentional rounding.
--- NOTE | 2017-01-02 04:17 | NUR ---
FEVER & POSITIVE BLOOD CULTURES Pt has been febrile most of shift. PRN po tylenol given, cool washcloths, ice packs and light blankets used. Fever has improved very slowly, then returns. Per , ibuprofen not appropriate due to kidney function. At 0320, lab notified RN of positive blood cultures. notified, rec'd new orders to administer new IV abx. Pt updated on blood culture results and change of IV abx. New dose of abx administered. Continue to monitor.
[2017-01-02 05:48] LABS: BASOPHILS % (AUTO) 0 % (0-3); EOSINOPHILS % (AUTO) 0.1 % (0-5); MONOCYTES % (AUTO) 15.1 % (4-12); Mean Corpuscular Hemoglobin 30.9 pg (27.0-35.0); Mean Corpuscular Volume 91.8 fL (81-100); NEUTROPHILS % (AUTO) 76.9 % (40-74); Platelet Count 162 bil/L (150-400)
[2017-01-02] MEDS: Insulin Human REGular 300 Unit/3 mL Inj SUBQ SCH ×4 (07:30→21:15)
[2017-01-02] MEDS: Pantoprazole 40 mg ER24 Tablet PO SCH (07:50)
[2017-01-02] MEDS: Nystatin 100,000 Unit/Gm 15 Gm Powder TOPICAL SCH ×2 (07:53→21:07)
[2017-01-02] MEDS ORDERED: cefTRIAXone Inj 2,000 MG in Dextrose 5% Minibag Plus 50 ML IV SCH (08:30)
--- NOTE | 2017-01-02 08:43 | DRSVH ---
PROCEDURE: X-RAY CHEST ONE VIEW, PORTABLE ([id number]) INDICATIONS: Possible aspiration Pneumonitis TECHNIQUE: One view of the chest was acquired. COMPARISON: [facility], CR, XR CHEST 1VW (PORTABLE), 01/01/2017, 9:52. FINDINGS: Surgical changes and devices: None. Lungs and pleura: No pleural effusions or pneumothorax. Lungs are clear. Mediastinum: Mediastinal contours appear normal. Heart size is enlarged. Bones and chest wall: No suspicious bony lesions. Overlying soft tissues appear unremarkable. IMPRESSION: No acute cardiopulmonary disease. Dictated by: Noel GREEN Interpreted: Tuyet Carreon MD on 01/02/2017 at 8:42 Transcribed by: LILLIE on 01/02/2017 at 8:42 Approved by: Tuyet Carreon M.D. on 01/04/2017 at 9:04
[2017-01-02] MEDS ORDERED: Potassium Chloride 20 mEq SR Tablet PO ONE (08:55)
--- NOTE | 2017-01-02 11:49 | NUR ---
Consent for Information Pt has given consent to allow [facility] to update Aury Burrell on pt's condition. Addendum: 01/02/17 at 1150 by IVANA NICHOLE RN Verbal consent, witnessed by marcus REICH.
[2017-01-02] MEDS ORDERED: Phenylephrine-Mineral Oil 28 Gm Ointment RECTAL PRN (13:50)
[2017-01-02] MEDS ORDERED: Phenyleph-Petrol-Min Oil 57 Gm Ointment RECTAL PRN (15:40)
--- NOTE | 2017-01-02 15:58 | NUR ---
Evaluation completed. Please go to "Notes" then click on "Assessments and Notes" (bottom left corner of screen). Then select appropriate discipline tab on top of screen.
--- NOTE | 2017-01-02 18:48 | NUR ---
Fever Pt has been febrile all day, given Tylenol as ordered with little relief. MD notified, and fever is expected r/t dx and kidney injury. Order was to continue to monitor and keep cool. Pt resting comfortably in bed with call light within reach, bed low and locked, intentional rounding.
--- NOTE | 2017-01-02 23:21 | PCM.PNMED ---
Subjective Date of Service Jan 02, 2017 Subjective Patient is feeling a little bit better. However she still very tired. She also continues to have fever. Temperatures have been steadily over 38C. She has no other new complaints. Exam Vital Signs Vital Sign - Last Date Time Temp Pulse Resp B/P Pulse Ox O2 Delivery O2 Flow Rate FiO2 01/02/17 21:31 37.0 94 16 160/75 96 Room Air Intake and Output 01/01/17 01/01/17 01/02/17 Cumulative From/Thru 15:00 23:00 07:00 01/01/17 09:05 - 01/02/17 06:08 Intake Total 1000 ml 997 ml 1895 ml 3892 ml Output Total 425 ml 2350 ml 2775 ml Balance 1000 ml 572 ml -455 ml 1117 ml Intake Oral 600 ml 950 ml 1550 ml IV Total 1000 ml 397 ml 945 ml 2342 ml Output Urine Total 425 ml 2350 ml 2775 ml # Voids 2 2 Exam General: Patient is in no apparent distress and she appears less lethargic than she did yesterday. Patient has no new complaints. HEENT: Head is atraumatic and normocephalic. Eyes: Pupils are equally round and reactive to light and accommodation. Extraocular muscles are intact. Sclera are white, anicteric. Subconjunctival mucosa is pink. Ears and nose are unremarkable. Oropharynx: There is no mucosal lesions, there is no thrush, there is no pharyngitis. Neck: Is supple, there are no nodes, or masses or tenderness. Chest: Is clear to auscultation and percussion. There are no rales, rhonchi, wheezes or rubs. Heart: Rate, rhythm is regular. There is no murmur, rub or gallop. Abdomen: Good bowel sounds are present. Abdomen is morbidly obese, soft, nontender, no organomegaly or masses were appreciated. Extremities: Are symmetrical and well perfused. There is no edema, there is no cellulitis, no rash. Neurologic: There are no focal neurological deficits. Cranial nerves II through XII are intact. There are no sensory or motor deficits. However, patient is very lethargic. Psychiatric: Patients mood is calm and shows no sign of agitation. Genital: Deferred Rectal: Deferred Lab and Diagnostics Result Diagram: 01/02/17 0540 01/02/17 0540 Microbiology Blood and urine cultures are pending. X-Rays, CTs and MRIs PROCEDURE: X-RAY CHEST ONE VIEW, PORTABLE ([id number]) INDICATIONS: dyspnea TECHNIQUE: One view of the chest was acquired. COMPARISON: [facility], CR, XR ABD ACUTE SERIES 3VW, 11/20/2016, 12 :57. FINDINGS: Surgical changes and devices: None. Lungs and pleura: There has been interval development of a vague density within the left lung, which is fairly diffuse. The pulmonary vasculature is prominent. Mediastinum: Mediastinal contours appear normal. Heart size is enlarged. Bones and chest wall: No suspicious bony lesions. Overlying soft tissues appear unremarkable. IMPRESSION: 1. Pulmonary vascular congestion. 2. Cardiomegaly. 3. Vague diffuse density within the left hemithorax may be related to superimposed breast tissue. However, a pleural effusion may have this appearance. Standard upright 2 views of the chest would be helpful for better evaluation. Dictated by: Ethan Poole M.D. on 01/01/2017 at 9:20 Approved by: Ethan Poole M.D. on 01/01/2017 at 9:21 Name: YOAN DE LA CRUZ Age/Sex: 71/F Attend Dr: Artis Martinez Acct: [id number] Unit: [id number] Status: ADM IN Location: [facility] 3003-1 Re01/01/17 Disch: Specimen: [id number] Collected: 01/01/17-0 Status: RES Req#: [id number] Received: 01/01/17-1100 Source: BLOOD Sp Desc : ERIC Phillips Dr: Cheyanne,Neal Bustillos MD Ordered: Comments: Collected by Nurse/Unit? Y/N N Procedure Result Verified Site Microbiology JUMANA CULTURE BLOOD Preliminary 01/02/17-1038 Organism 1 POSITIVE BLOOD CULTURE GRAM STAIN RESULT GRAM NEGATIVE RODS BC BOTTLE Isolated from Aerobic Bottle of Set Drawn DATE CALLED: 01/02/17 TIME CALLED: [id number] CALLED BY: RODOLFO FLOOR/DOCTOR: DAMIR ROGER READ BACK YES TYPE OF DRAW PERIPHERAL DRAW TIME OF POSITIVITY 0300 Cardiac Echo Impressions PROCEDURE: X-RAY CHEST ONE VIEW, PORTABLE ([id number]) INDICATIONS: Possible aspiration Pneumonitis TECHNIQUE: One view of the chest was acquired. COMPARISON: [facility], CR, XR CHEST 1VW (PORTABLE), 01/01/2017, 9: 52. FINDINGS: Surgical changes and devices: None. Lungs and pleura: No pleural effusions or pneumothorax. Lungs are clear. Mediastinum: Mediastinal contours appear normal. Heart size is enlarged. Bones and chest wall: No suspicious bony lesions. Overlying soft tissues appear unremarkable. IMPRESSION: No acute cardiopulmonary disease. Dictated by: Noel GREEN Interpreted: Tuyet Carreon MD on 01/02/2017 at 8: 42 Transcribed by: LILLIE on 01/02/2017 at 8:42 Assessment & Plan The patient is a 71-year-old obese white female with history of type II diabetes mellitus and nonalcoholic steatohepatitis who has been having generalized weakness for approximately 1 week. She also has been complaining of headache, nonproductive cough, mild back pain, mild neck pain on the sides of her neck, myalgias, chills, nausea and vomiting without any hematemesis. She also complains of some diarrhea without any hematochezia or melena 3 times a day. She has no abdominal pain, no chest pain, no dysuria. He has also been short of breath mostly at night. Patient fell out of bed this morning and could not get up. Her called 911 and she was brought to [facility] emergency room by EMS services. She was evaluated by Dr. Neal Edward who performed a urinalysis which showed greater than 50 white blood cells per power field moderate leukocyte esterase and positive nitrite. The patient's serum white blood cell count was elevated at 10.6 and the patient continued to have high fever. The patient therefore was admitted to the hospitalist service for further evaluation and treatment. # Urinary tract infection with sepsis and ongoing fever even after receiving antibiotics in the emergency room - Infection was present at the time of admission and is ongoing - We will continue Rocephin as fever is expected with pyelonephritis. I suspect patient has pyelonephritis. - Check blood and urine cultures ordered in the emergency room - Check serial lactic acid levels - Gentle IV hydration due to patient's age and elevated BNP at baseline. # Hyponatremia - Present at the time of admission - Patient had a sodium level of 121 the last admission and it is 128 this admission. Now improved to 1:30 - Continue IV fluids with lactated Ringer's for now - Check labs in a.m. and continue to closely monitor patient's electrolytes # Nonalcoholic steatohepatitis with cirrhosis. - Avoid hepatotoxic medications. - Monitor liver function tests closely # Type II diabetes mellitus present time of admission and ongoing hypoglycemia at the time of admission with a blood sugar 46 on the floor. - Sliding-scale insulin coverage ordered for blood sugars before meals and at bedtime - Continue home medications when blood sugar is more stable - Check hemoglobin A1c - 1 amp of D50 given after her blood sugar was found to be 46. # Disposition: Patient will likely be hospitalized for another 48 hours for continued evaluation and treatment of the above problem. Pain Evaluation: Adequate Pain Control GI Prophylaxis: Proton Pump Inhibitor VTE Prophylaxis: Sub-Q Enoxaparin VTE Mechanical Devices: Intermittant Pneumatic CD Resuscitation Status: CPR: Attempt Resuscitation Artis Martinez MD Jan 02, 2017 23:21
[2017-01-03] VITALS (9 sets, daily range): BP systolic 129–173; BP diastolic 70–90; PULSE 82–99; RESP 16–18; O2SAT 95–98
[2017-01-03] MEDS: Cefepime Inj 2,000 MG in Dextrose 5% Minibag Plus 100 ML IV SCH (03:47)
[2017-01-03 05:56] LABS: BASOPHILS % (AUTO) 0.3 % (0-3); EOSINOPHILS % (AUTO) 1.1 % (0-5); MONOCYTES % (AUTO) 21.6 % (4-12); Mean Corpuscular Hemoglobin 30.7 pg (27.0-35.0); Mean Corpuscular Volume 91.3 fL (81-100); NEUTROPHILS % (AUTO) 63.9 % (40-74); Platelet Count 179 bil/L (150-400)
[2017-01-03] MEDS: Insulin Human REGular 300 Unit/3 mL Inj SUBQ SCH ×4 (07:45→21:12)
[2017-01-03] MEDS: Pantoprazole 40 mg ER24 Tablet PO SCH (07:45)
[2017-01-03] MEDS: 0.9% NaCl + KCl 20 mEq/L 1,000 ML IV SCH ×2 (08:27→21:53)
[2017-01-03] MEDS: Ertapenem Inj 1,000 MG in 0.9% Sodium Chloride 50 ML IV SCH (09:00)
[2017-01-03] MEDS: Nystatin 100,000 Unit/Gm 15 Gm Powder TOPICAL SCH ×2 (09:02→21:49)
--- NOTE | 2017-01-03 10:39 | NUR ---
Evaluation completed. Please go to "Notes" then click on "Assessments and Notes" (bottom left corner of screen). Then select appropriate discipline tab on top of screen.
--- NOTE | 2017-01-03 11:28 | NUR ---
Pt. Alert & Oriented x3 SBA, Pt. denies pain, sob, and chest pain. Pt is afebrile. Pt was incontinent overnight and wasn't aware it happened. Did a full bed change, brief change and gown change at 0900. Makes needs known. Call light in reach, bed low and locked. Addendum: 01/03/17 at 1828 by FRANCESCA LOPEZ Pt. remained afebrile throughout the day. Resting comfortably. Makes needs known, has call light within reach. Bed locked and low.
--- NOTE | 2017-01-03 17:46 | NUR ---
Uneventful Pt has been napping on and off through the day, has been afebrile. Pt up with PT walked the hallway to [facility], did well PT discharged Pt from services. Pt is resting comfortably in bed with call light within reach, bed low and locked, intentional rounding.
--- NOTE | 2017-01-03 23:59 | PCM.PNMED ---
Subjective Date of Service Jan 03, 2017 Subjective Patient states that her fever seemed to break this morning however she still feels very fatigued and has general malaise. Overall she feels a little bit better. Exam Vital Signs Vital Sign - Last Date Time Temp Pulse Resp B/P Pulse Ox O2 Delivery O2 Flow Rate FiO2 01/03/17 22:10 36.7 82 18 150/74 97 Room Air Intake and Output 01/02/17 01/02/17 01/03/17 Cumulative From/Thru 15:00 23:00 07:00 01/01/17 09:05 - 01/03/17 06:34 Intake Total 1763 ml 5655 ml Output Total 2000 ml 4775 ml Balance -237 ml 880 ml Intake Oral 1763 ml 3313 ml IV Total 2342 ml Output Urine Total 2000 ml 4775 ml # Voids 3 5 # Bowel Movements 1 1 Exam General: Patient is in no apparent distress and she appears less lethargic than she did yesterday. Patient has no new complaints. HEENT: Head is atraumatic and normocephalic. Eyes: Pupils are equally round and reactive to light and accommodation. Extraocular muscles are intact. Sclera are white, anicteric. Subconjunctival mucosa is pink. Ears and nose are unremarkable. Oropharynx: There is no mucosal lesions, there is no thrush, there is no pharyngitis. Neck: Is supple, there are no nodes, or masses or tenderness. Chest: Is clear to auscultation and percussion. There are no rales, rhonchi, wheezes or rubs. Heart: Rate, rhythm is regular. There is no murmur, rub or gallop. Abdomen: Good bowel sounds are present. Abdomen is morbidly obese, soft, nontender, no organomegaly or masses were appreciated. Extremities: Are symmetrical and well perfused. There is no edema, there is no cellulitis, no rash. Neurologic: There are no focal neurological deficits. Cranial nerves II through XII are intact. There are no sensory or motor deficits. However, patient is very lethargic. Psychiatric: Patients mood is calm and shows no sign of agitation. Genital: Deferred Rectal: Deferred Lab and Diagnostics Result Diagram: 01/03/17 0515 01/02/17 0540 Microbiology Blood and urine cultures are positive for extended spectrum beta lactamase resistant Escherichia coli Specimen: [id number] Collected: 01/01/17-0 Status: RES Req#: [id number] Received: 01/01/17-1099 Source: BLOOD Sp Desc : ERIC Phillips Dr: Cheyanne,Neal Bustillos MD Ordered: Comments: Collected by Nurse/Unit? Y/N N Procedure Result Verified Site Microbiology JUMANA CULTURE BLOOD Preliminary 01/03/17-0741 Organism 1 E. COLI ESBL MANAGER DEMAND GRAM STAIN RESULT GRAM NEGATIVE RODS BC BOTTLE Isolated from Aerobic Bottle of Set Drawn DATE CALLED: 01/02/17 TIME CALLED: 8 CALLED BY: RODOLFO FLOOR/DOCTOR: DAMIR Bustillos READ BACK YES TYPE OF DRAW PERIPHERAL DRAW TIME OF POSITIVITY 0300 PLEASE NOTE This isolate has developed multiple resistance mechanisms to various classes of antibiotics. Consider Contact isolation precautions for in-patients. Contact Pharmacy. Consider Infectious Disease Specialist Consultation. Called to [facility] infection control 0745 01/03/17 and to Sonali HARPER nurse. 1. E. COLI ESBL MANAGER DEMAND Julio Interp --------- ------ * AMIKACIN 16 S * AMPICILLIN >=32 R * AMPICILLIN/SULBACTAM >=32 R * CEFAZOLIN >=64 R * CEFEPIME R * CEFOXITIN <=4 S * CEFTRIAXONE >=64 R * ERTAPENEM <=0.5 S * GENTAMICIN >=16 R * MEROPENEM <=0.25 S * TOBRAMYCIN >=16 R * TRIMETHOPRIM/SULFAMETHOXAZOLE <=20 S CONTINUED ON NEXT PAGE RUN DATE: 01/03/17 [facility] LIVE PAGE 2 RUN TIME: 741 Specimen Inquiry PHYSICIAN Patient: YOAN DE LA CRUZ [id number] (Continued) Specimen: [id number] Collected: 01/01/17-1039 Received: 01/01/17-1099 (Continued) Procedure Result Verified Site JUMANA CULTURE BLOOD Preliminary (continued) 01/03/17-740 1. E. COLI ESBL MANAGER DEMAND (continued) M.I.C Interp --------- ------ * PIPERACILLIN/TAZOBACTAM 8 S X-Rays, CTs and MRIs PROCEDURE: X-RAY CHEST ONE VIEW, PORTABLE ([id number]) INDICATIONS: dyspnea TECHNIQUE: One view of the chest was acquired. COMPARISON: [facility], CR, XR ABD ACUTE SERIES 3VW, 11/20/2016, 12 :57. FINDINGS: Surgical changes and devices: None. Lungs and pleura: There has been interval development of a vague density within the left lung, which is fairly diffuse. The pulmonary vasculature is prominent. Mediastinum: Mediastinal contours appear normal. Heart size is enlarged. Bones and chest wall: No suspicious bony lesions. Overlying soft tissues appear unremarkable. IMPRESSION: 1. Pulmonary vascular congestion. 2. Cardiomegaly. 3. Vague diffuse density within the left hemithorax may be related to superimposed breast tissue. However, a pleural effusion may have this appearance. Standard upright 2 views of the chest would be helpful for better evaluation. Dictated by: Ethan Poole M.D. on 01/01/2017 at 9:20 Approved by: Ethan Poole M.D. on 01/01/2017 at 9:21 Name: JOSEPH DE LA CRUZIJEOMA Ferguson Age/Sex: 71/F Attend Dr: Artis Martinez Acct: [id number] Unit: [id number] Status: ADM IN Location: [address] Re01/01/17 Disch: Specimen: [id number] Collected: 01/01/17-1039 Status: RES Req#: [id number] Received: 01/01/17-1099 Source: BLOOD Sp Desc : ERIC Phillips Dr: Cheyanne,Neal Bustillos MD Ordered: ACACIA Comments: Collected by Nurse/Unit? Y/N N Procedure Result Verified Site Microbiology JUMANA CULTURE BLOOD Preliminary 01/02/17-1038 Organism 1 POSITIVE BLOOD CULTURE GRAM STAIN RESULT GRAM NEGATIVE RODS BC BOTTLE Isolated from Aerobic Bottle of Set Drawn DATE CALLED: 01/02/17 TIME CALLED: 317 CALLED BY: RODOLFO FLOOR/DOCTOR: DAMIR ROGER READ BACK YES TYPE OF DRAW PERIPHERAL DRAW TIME OF POSITIVITY 0300 Cardiac Echo Impressions PROCEDURE: X-RAY CHEST ONE VIEW, PORTABLE ([id number]) INDICATIONS: Possible aspiration Pneumonitis TECHNIQUE: One view of the chest was acquired. COMPARISON: [facility], CR, XR CHEST 1VW (PORTABLE), 01/01/2017, 9: 52. FINDINGS: Surgical changes and devices: None. Lungs and pleura: No pleural effusions or pneumothorax. Lungs are clear. Mediastinum: Mediastinal contours appear normal. Heart size is enlarged. Bones and chest wall: No suspicious bony lesions. Overlying soft tissues appear unremarkable. IMPRESSION: No acute cardiopulmonary disease. Dictated by: Noel GREEN Interpreted: Tuyet Carreon MD on 01/02/2017 at 8: 42 Transcribed by: LILLIE on 01/02/2017 at 8:42 Assessment & Plan The patient is a 71-year-old obese white female with history of type II diabetes mellitus and nonalcoholic steatohepatitis who has been having generalized weakness for approximately 1 week. She also has been complaining of headache, nonproductive cough, mild back pain, mild neck pain on the sides of her neck, myalgias, chills, nausea and vomiting without any hematemesis. She also complains of some diarrhea without any hematochezia or melena 3 times a day. She has no abdominal pain, no chest pain, no dysuria. He has also been short of breath mostly at night. Patient fell out of bed this morning and could not get up. Her called 911 and she was brought to [facility] emergency room by EMS services. She was evaluated by Dr. Neal Edward who performed a urinalysis which showed greater than 50 white blood cells per power field moderate leukocyte esterase and positive nitrite. The patient's serum white blood cell count was elevated at 10.6 and the patient continued to have high fever. The patient therefore was admitted to the hospitalist service for further evaluation and treatment. # Urinary tract infection with sepsis secondary to extended spectrum beta- lactamase resistant Escherichia coli. This would explain the ongoing fever even after receiving antibiotics since admission. - Infection was present at the time of admission and is ongoing - We will continue cefepime and start ertapenem. - Check blood and urine cultures ordered in the emergency room - We checked serial lactic acid levels - Gentle IV hydration due to patient's age and elevated BNP at baseline. # Hyponatremia - Present at the time of admission - Patient had a sodium level of 121 the last admission and it is 128 this admission. Now improved to 130 - Continue IV fluids with lactated Ringer's for now - Check labs in a.m. and continue to closely monitor patient's electrolytes # Nonalcoholic steatohepatitis with cirrhosis. - Avoid hepatotoxic medications. - Monitor liver function tests closely # Type II diabetes mellitus present time of admission and ongoing hypoglycemia at the time of admission with a blood sugar 46 on the floor. - Sliding-scale insulin coverage ordered for blood sugars before meals and at bedtime - Continue home medications when blood sugar is more stable - Check hemoglobin A1c - 1 amp of D50 given after her blood sugar was found to be 46. # Disposition: Patient will likely be hospitalized for another 48 hours for continued evaluation and treatment of the above problem. Pain Evaluation: Adequate Pain Control GI Prophylaxis: Proton Pump Inhibitor VTE Prophylaxis: Sub-Q Enoxaparin VTE Mechanical Devices: Intermittant Pneumatic CD Resuscitation Status: CPR: Attempt Resuscitation Artis Martinez MD Jan 03, 2017 23:59
[2017-01-04] VITALS (7 sets, daily range): BP systolic 128–180; BP diastolic 69–90; PULSE 75–88; RESP 18–27; O2SAT 95–99
--- NOTE | 2017-01-04 04:55 | NUR ---
Uneventful Night Pt has been resting comfortably throughout night. Pt has been afibrile, no c/o nausea or pain. Has used call light appropriately when needing to use the bathroom, up with SBA. Call light in reach, upper rails up, bed locked in low position. Will continue to monitor.
[2017-01-04 06:07] LABS: BASOPHILS % (AUTO) 0.6 % (0-3); EOSINOPHILS % (AUTO) 2.3 % (0-5); MONOCYTES % (AUTO) 16.7 % (4-12); Mean Corpuscular Hemoglobin 30.7 pg (27.0-35.0); Mean Corpuscular Volume 91.8 fL (81-100); NEUTROPHILS % (AUTO) 59.8 % (40-74); Platelet Count 185 bil/L (150-400)
[2017-01-04 06:28] LABS: Magnesium 1.4 mg/dL (1.6-2.6)
[2017-01-04] MEDS: Nystatin 100,000 Unit/Gm 15 Gm Powder TOPICAL SCH ×2 (08:17→22:01)
[2017-01-04] MEDS: Pantoprazole 40 mg ER24 Tablet PO SCH (08:17)
[2017-01-04] MEDS: Insulin Human REGular 300 Unit/3 mL Inj SUBQ SCH ×4 (08:24→22:00)
[2017-01-04] MEDS: Ertapenem Inj 1,000 MG in 0.9% Sodium Chloride 50 ML IV SCH (08:25)
[2017-01-04] MEDS ORDERED: Magnesium Sulf 2 Gm/50mL Water 2 GM in IV Premix 1 EACH IV ONE (08:30)
[2017-01-04] MEDS ORDERED: Magnesium Sulf 4 Gm/100 mL H2O 4 GM in IV Premix 1 EACH IV ONE (10:00)
[2017-01-04] MEDS: 0.9% NaCl + KCl 20 mEq/L 1,000 ML IV SCH ×2 (11:49→11:58)
--- NOTE | 2017-01-04 13:47 | NUR ---
[facility] signed
--- NOTE | 2017-01-04 14:00 | NUR ---
Social Work: Initial Assessment Data & assessment: See initial Assessment. EMR reviewed. Patient is a 71 y/o female that admited for weakness and UTI per H&p. Patient has a re-admit score of four high risk. Patient has no LTC insurance and no VA benefits. Patient's PCP is Dr. Catherine Cuellar and her insurance is medicare and [facility] [employer] [facility]. Patient lives in a one store home with her family where she is independent at baseline. Patient does drive and has no DME. Patient does not have any SNF or HH history. Patient does not have any discharge needs at this time. SW provided contact information on patient's white board. SW will continue to follow and assist patient throughout stay. Plan: Patient will likely discharge home no needs via POV. SW will continue to follow. Nicolette Rdz LMSW, DAVID Addendum: 01/04/17 at 1408 by NICOLETTE RDZ SS Amended: Links added.
--- NOTE | 2017-01-04 16:14 | PCM.PNMED ---
Subjective Date of Service Jan 04, 2017 Subjective The patient is feeling a little bit better today. No nausea, no vomiting, no fever, no chills. However, she is extremely tired still. And she has been able to get up and go to the bathroom and walk in the room and that is about it. Exam Vital Signs Vital Sign - Last Date Time Temp Pulse Resp B/P Pulse Ox O2 Delivery O2 Flow Rate FiO2 01/04/17 11:32 36.5 78 128/70 96 Room Air 01/04/17 08:38 27 Intake and Output 01/03/17 01/03/17 01/04/17 Cumulative From/Thru 15:00 23:00 07:00 01/01/17 09:05 - 01/04/17 06:00 Intake Total 2010 ml 1552 ml 1372 ml 27675 ml Output Total 2450 ml 1900 ml 9125 ml Balance 2010 ml -898 ml -528 ml 1465 ml Intake Oral 836 ml 400 ml 4549 ml IV Total 2010 ml 716 ml 972 ml 6041 ml Output Urine Total 2450 ml 1900 ml 9125 ml # Voids 5 # Bowel Movements 0 0 1 Exam General: Patient is in no apparent distress and she again appears less lethargic than she did yesterday. Patient has no new complaints. She still feels very tired. HEENT: Head is atraumatic and normocephalic. Eyes: Pupils are equally round and reactive to light and accommodation. Extraocular muscles are intact. Sclera are white, anicteric. Subconjunctival mucosa is pink. Ears and nose are unremarkable. Oropharynx: There is no mucosal lesions, there is no thrush, there is no pharyngitis. Neck: Is supple, there are no nodes, or masses or tenderness. Chest: Is clear to auscultation and percussion. There are no rales, rhonchi, wheezes or rubs. Heart: Rate, rhythm is regular. There is no new murmur, rub or gallop. Abdomen: Good bowel sounds are present. Abdomen is morbidly obese, soft, nontender, no organomegaly or masses were appreciated. Extremities: Are symmetrical and well perfused. There is no edema, there is no cellulitis, no rash. Neurologic: There are no focal neurological deficits. Cranial nerves II through XII are intact. There are no sensory or motor deficits. Patient is less lethargic today than yesterday. Psychiatric: Patients mood is calm and shows no sign of agitation. Genital: Deferred Rectal: Deferred Lab and Diagnostics Result Diagram: 01/04/1752901/04/17 0530 Microbiology Blood and urine cultures are positive for extended spectrum beta lactamase resistant Escherichia coli Specimen: [id number] Collected: 01/01/17 Status: RES Req#: [id number] Received: 01/01/17 Source: BLOOD Sp Desc : AA Subm Dr: Neal Edward MD Ordered: Comments: Collected by Nurse/Unit? Y/N N Procedure Result Verified Site Microbiology JUMANA CULTURE BLOOD Preliminary 01/03/17-740 Organism 1 E. COLI ESBL MANAGER DATA CENTER GRAM STAIN RESULT GRAM NEGATIVE RODS BC BOTTLE Isolated from Aerobic Bottle of Set Drawn DATE CALLED: 01/02/17 TIME CALLED: 317 CALLED BY: RODOLFO FLOOR/DOCTOR: DAMIR Bustillos BC READ BACK YES TYPE OF DRAW PERIPHERAL DRAW TIME OF POSITIVITY 0300 PLEASE NOTE This isolate has developed multiple resistance mechanisms to various classes of antibiotics. Consider Contact isolation precautions for in-patients. Contact Pharmacy. Consider Infectious Disease Specialist Consultation. Called to [facility] infection control 0745 01/03/17 and to Sonali HARPER nurse. 1. E. COLI ESBL MANAGER DATA CENTER Julio Fortep --------- ------ * AMIKACIN 16 S * AMPICILLIN >=32 R * AMPICILLIN/SULBACTAM >=32 R * CEFAZOLIN >=64 R * CEFEPIME R * CEFOXITIN <=4 S * CEFTRIAXONE >=64 R * ERTAPENEM <=0.5 S * GENTAMICIN >=16 R * MEROPENEM <=0.25 S * TOBRAMYCIN >=16 R * TRIMETHOPRIM/SULFAMETHOXAZOLE <=20 S CONTINUED ON NEXT PAGE RUN DATE: 01/03/17 [facility] LAB LIVE PAGE 2 RUN TIME: 741 Specimen Inquiry PHYSICIAN Patient: YOAN DE LA CRUZ [id number] (Continued) Specimen: [id number] Collected: 01/01/17-0 Received: 01/01/17-1099 (Continued) Procedure Result Verified Site JUMANA CULTURE BLOOD Preliminary (continued) 01/03/17-740 1. E. COLI ESBL MANAGER DATA CENTER (continued) M.I.C Interp --------- ------ * PIPERACILLIN/TAZOBACTAM 8 S X-Rays, CTs and MRIs PROCEDURE: X-RAY CHEST ONE VIEW, PORTABLE ([id number]) INDICATIONS: dyspnea TECHNIQUE: One view of the chest was acquired. COMPARISON: [facility], CR, XR ABD ACUTE SERIES 3VW, 11/20/2016, 12 :57. FINDINGS: Surgical changes and devices: None. Lungs and pleura: There has been interval development of a vague density within the left lung, which is fairly diffuse. The pulmonary vasculature is prominent. Mediastinum: Mediastinal contours appear normal. Heart size is enlarged. Bones and chest wall: No suspicious bony lesions. Overlying soft tissues appear unremarkable. IMPRESSION: 1. Pulmonary vascular congestion. 2. Cardiomegaly. 3. Vague diffuse density within the left hemithorax may be related to superimposed breast tissue. However, a pleural effusion may have this appearance. Standard upright 2 views of the chest would be helpful for better evaluation. Dictated by: Ethan Poole M.D. on 01/01/2017 at 9:20 Approved by: Ethan Poole M.D. on 01/01/2017 at 9:21 Name: YOAN DE LA CRUZ Age/Sex: 71/F Attend Dr: Artis Martinez Acct: [id number] Unit: [id number] Status: ADM IN Location: [facility] [place], [place] 3003-1 Re01/01/17 Disch: Specimen: [id number] Collected: 01/01/17 Status: RES Req#: [id number] Received: 01/01/17 Source: BLOOD Sp Desc : ERIC Phillips Dr: Neal Edward MD Ordered: ACACIA Comments: Collected by Nurse/Unit? Y/N N Procedure Result Verified Site Microbiology JUMANA CULTURE BLOOD Preliminary 01/02/17-1038 Organism 1 POSITIVE BLOOD CULTURE GRAM STAIN RESULT GRAM NEGATIVE RODS BC BOTTLE Isolated from Aerobic Bottle of Set Drawn DATE CALLED: 01/02/17 TIME CALLED: 317 CALLED BY: RODOLFO FLOOR/DOCTOR: DAMIR ROGER READ BACK YES TYPE OF DRAW PERIPHERAL DRAW TIME OF POSITIVITY 0300 Cardiac Echo Impressions PROCEDURE: X-RAY CHEST ONE VIEW, PORTABLE ([id number]) INDICATIONS: Possible aspiration Pneumonitis TECHNIQUE: One view of the chest was acquired. COMPARISON: [facility], CR, XR CHEST 1VW (PORTABLE), 01/01/2017, 9: 52. FINDINGS: Surgical changes and devices: None. Lungs and pleura: No pleural effusions or pneumothorax. Lungs are clear. Mediastinum: Mediastinal contours appear normal. Heart size is enlarged. Bones and chest wall: No suspicious bony lesions. Overlying soft tissues appear unremarkable. IMPRESSION: No acute cardiopulmonary disease. Dictated by: Noel Martinez Alicia Interpreted: Tuyet Carreon MD on 01/02/2017 at 8: 42 Transcribed by: LILLIE on 01/02/2017 at 8:42 Assessment & Plan The patient is a 71-year-old obese white female with history of type II diabetes mellitus and nonalcoholic steatohepatitis who has been having generalized weakness for approximately 1 week. She also has been complaining of headache, nonproductive cough, mild back pain, mild neck pain on the sides of her neck, myalgias, chills, nausea and vomiting without any hematemesis. She also complains of some diarrhea without any hematochezia or melena 3 times a day. She has no abdominal pain, no chest pain, no dysuria. He has also been short of breath mostly at night. Patient fell out of bed this morning and could not get up. Her called 911 and she was brought to [facility] emergency room by EMS services. She was evaluated by Dr. Neal Edward who performed a urinalysis which showed greater than 50 white blood cells per power field moderate leukocyte esterase and positive nitrite. The patient's serum white blood cell count was elevated at 10.6 and the patient continued to have high fever. The patient therefore was admitted to the hospitalist service for further evaluation and treatment. # Urinary tract infection with sepsis secondary to extended spectrum beta- lactamase resistant Escherichia coli. This would explain the ongoing fever even after receiving antibiotics since admission. - Infection was present at the time of admission and is ongoing - We will continue cefepime and start ertapenem. - Check blood and urine cultures ordered in the emergency room - We checked serial lactic acid levels - Gentle IV hydration due to patient's age and elevated BNP at baseline. However, patient is eating and drinking better now and we can discontinue her IV fluids. # Hyponatremia, present at the time of admission. Improving/resolved - Present at the time of admission - Patient had a sodium level of 121 the last admission and it is 128 this admission. Now improved to 130 - We have continued IV fluids since admission and will now discontinue - Check labs in a.m. and continue to closely monitor patient's electrolytes # Nonalcoholic steatohepatitis with cirrhosis. - Avoid hepatotoxic medications. - Monitor liver function tests closely # Type II diabetes mellitus present time of admission and ongoing hypoglycemia at the time of admission with a blood sugar 46 on the floor. - Sliding-scale insulin coverage ordered for blood sugars before meals and at bedtime - Continue home medications when blood sugar is more stable - Check hemoglobin A1c - 1 amp of D50 given after her blood sugar was found to be 46. # Disposition: Patient will likely be hospitalized for another 48 hours for continued evaluation and treatment of the above problem. We will discontinue telemetry monitoring. Pain Evaluation: Adequate Pain Control GI Prophylaxis: Proton Pump Inhibitor VTE Prophylaxis: Sub-Q Enoxaparin VTE Mechanical Devices: Intermittant Pneumatic CD Resuscitation Status: CPR: Attempt Resuscitation Artis Martinez MD Jan 04, 2017 16:14
--- NOTE | 2017-01-04 17:42 | NUR ---
student note Patient is a 71 year old female admitted for weakness/UTI. Patient has a hx of HTN, DM II and has an abrasion under abdominal fold. Dressing is clean, dry and intact. Patient is SL, with IV access on R AC, flushes are patent. Patient states no pain and is independent in the room with BR privileges, last BM 01/04. Alert and oriented x 3 with optimal vital signs throughout shift, patient taken off telemetry per physician's orders. Patient is resting comfortably.
[2017-01-05 01:15] VITALS: BP 169/72; PULSE 78; RESP 18; O2SAT 92
--- NOTE | 2017-01-05 05:18 | NUR ---
Shift Note Pt is independent in room up to bathroom with no problems. No SOB or dizziness. A dry, intermittent cough is present. Saline locked. No complaints of pain or N/V. Nystatin applied to open sore on stomach with a 2x2 dressing for any drainage. Patient currently sleeping with appropriate chest rise and fall.
[2017-01-05 05:29] VITALS: BP 166/74; PULSE 78; RESP 18; O2SAT 94
[2017-01-05 06:29] LABS: BASOPHILS % (AUTO) 0.4 % (0-3); EOSINOPHILS % (AUTO) 3.9 % (0-5); MONOCYTES % (AUTO) 16.3 % (4-12); Mean Corpuscular Hemoglobin 30.8 pg (27.0-35.0); Mean Corpuscular Volume 89.4 fL (81-100); NEUTROPHILS % (AUTO) 55.8 % (40-74); Platelet Count 232 bil/L (150-400)
[2017-01-05 06:46] LABS: Magnesium 1.8 mg/dL (1.6-2.6)
[2017-01-05] MEDS: Ertapenem Inj 1,000 MG in 0.9% Sodium Chloride 50 ML IV SCH (08:23)
[2017-01-05] MEDS: Insulin Human REGular 300 Unit/3 mL Inj SUBQ SCH ×4 (08:24→22:00)
[2017-01-05] MEDS: Pantoprazole 40 mg ER24 Tablet PO SCH (08:24)
[2017-01-05] MEDS: Nystatin 100,000 Unit/Gm 15 Gm Powder TOPICAL SCH ×2 (08:25→22:46)
[2017-01-05 10:23] VITALS: BP 166/93; PULSE 79; RESP 18; O2SAT 97
[2017-01-05 17:21] VITALS: BP 172/85; PULSE 72; RESP 18; O2SAT 95
[2017-01-05 21:30] VITALS: BP 177/78; PULSE 78; RESP 18; O2SAT 96
[2017-01-06 00:55] VITALS: BP 166/81; PULSE 79; RESP 18; O2SAT 95
--- NOTE | 2017-01-06 01:52 | PCM.PNMED ---
Subjective Date of Service January 05, 2017 Subjective The patient is beginning to feel better and is now for the first time wondering when she can go home. She has no new complaints. Weakness has improved some. Exam Vital Signs Vital Sign - Last Date Time Temp Pulse Resp B/P Pulse Ox O2 Delivery O2 Flow Rate FiO2 01/06/17 00:55 36.5 79 18 166/81 95 Room Air Intake and Output 01/05/17 01/05/17 01/06/17 Cumulative From/Thru 15:00 23:00 07:00 01/01/17 09:05 - 01/05/17 19:26 Intake Total 75 ml 700 ml 75450 ml Output Total 1300 ml 24965 ml Balance 75 ml -600 ml -20 ml Intake Oral 700 ml 7229 ml IV Total 75 ml 7051 ml Output Urine Total 1300 ml 75264 ml # Voids 5 # Bowel Movements 0 1 Exam General: Patient is in no apparent distress and he appears to be feeling a little bit better today. He is lying supine in bed with head elevated at approximately 10-30. HEENT: Head is atraumatic and normocephalic. Eyes: Pupils are equally round and reactive to light and accommodation. Extraocular muscles are intact. Sclera are white, anicteric. Subconjunctival mucosa is pink. Ears and nose are unremarkable. Oropharynx: There is no mucosal lesions, there is no thrush, there is no pharyngitis. Neck: Is supple, there are no nodes, or masses or tenderness. Chest: Is clear to auscultation and percussion. There are no rales, rhonchi, wheezes or rubs. Heart: Rate, rhythm is regular. There is no new murmur, rub or gallop. Abdomen: Good bowel sounds are present. Abdomen is morbidly obese, soft, nontender, no organomegaly or masses were appreciated. Extremities: Are symmetrical and well perfused. There is no edema, there is no cellulitis, no rash. Neurologic: There are no focal neurological deficits. Cranial nerves II through XII are intact. There are no sensory or motor deficits. Patient is less lethargic today than yesterday. Psychiatric: Patients mood is calm and shows no sign of agitation. Genital: Deferred Rectal: Deferred Lab and Diagnostics Result Diagram: 01/05/1715 01/05/1715 Microbiology Blood and urine cultures are positive for extended spectrum beta lactamase resistant Escherichia coli Specimen: [id number] Collected: 01/01/17 Status: RES Req#: [id number] Received: 01/01/17 Source: BLOOD Sp Desc : AA Alan Dr: Cheyanne,Neal Bustillos MD Ordered: Comments: Collected by Nurse/Unit? Y/N N Procedure Result Verified Site Microbiology JUMANA CULTURE BLOOD Preliminary 01/03/17-07 Organism 1 E. COLI ESBL CHARGEBACK ANALYST GRAM STAIN RESULT GRAM NEGATIVE RODS BC BOTTLE Isolated from Aerobic Bottle of Set Drawn DATE CALLED: 01/02/17 TIME CALLED: 0318 CALLED BY: RODOLFO FLOOR/DOCTOR: DAMIR ROGER READ BACK YES TYPE OF DRAW PERIPHERAL DRAW TIME OF POSITIVITY 0300 PLEASE NOTE This isolate has developed multiple resistance mechanisms to various classes of antibiotics. Consider Contact isolation precautions for in-patients. Contact Pharmacy. Consider Infectious Disease Specialist Consultation. Called to [facility] infection control 0745 01/03/17 and to Sonali HARPER nurse. 1. E. COLI ESBL CHARGEBACK ANALYST Julio Rai --------- ------ * AMIKACIN 16 S * AMPICILLIN >=32 R * AMPICILLIN/SULBACTAM >=32 R * CEFAZOLIN >=64 R * CEFEPIME R * CEFOXITIN <=4 S * CEFTRIAXONE >=64 R * ERTAPENEM <=0.5 S * GENTAMICIN >=16 R * MEROPENEM <=0.25 S * TOBRAMYCIN >=16 R * TRIMETHOPRIM/SULFAMETHOXAZOLE <=20 S CONTINUED ON NEXT PAGE RUN DATE: 01/03/17 [facility] LIVE PAGE 2 RUN TIME: 741 Specimen Inquiry PHYSICIAN Patient: YOAN DE LA CRUZ [id number] (Continued) Specimen: [id number] Collected: 01/01/17-1039 Received: 01/01/17-1099 (Continued) Procedure Result Verified Site JUMANA CULTURE BLOOD Preliminary (continued) 01/03/17-740 1. E. COLI ESBL CHARGEBACK ANALYST (continued) M.I.C Interp --------- ------ * PIPERACILLIN/TAZOBACTAM 8 S X-Rays, CTs and MRIs PROCEDURE: X-RAY CHEST ONE VIEW, PORTABLE ([id number]) INDICATIONS: dyspnea TECHNIQUE: One view of the chest was acquired. COMPARISON: [facility], CR, XR ABD ACUTE SERIES 3VW, 11/20/2016, 12 :57. FINDINGS: Surgical changes and devices: None. Lungs and pleura: There has been interval development of a vague density within the left lung, which is fairly diffuse. The pulmonary vasculature is prominent. Mediastinum: Mediastinal contours appear normal. Heart size is enlarged. Bones and chest wall: No suspicious bony lesions. Overlying soft tissues appear unremarkable. IMPRESSION: 1. Pulmonary vascular congestion. 2. Cardiomegaly. 3. Vague diffuse density within the left hemithorax may be related to superimposed breast tissue. However, a pleural effusion may have this appearance. Standard upright 2 views of the chest would be helpful for better evaluation. Dictated by: Ethan Poole M.D. on 01/01/2017 at 9:20 Approved by: Ethan Poole M.D. on 01/01/2017 at 9:21 Name: YAON DE LA CRUZ Age/Sex: 71/F Attend Dr: Artis Martinez Acct: [id number] Unit: [id number] Status: ADM IN Location: [facility] [place] 3003-1 Re01/01/17 Disch: Specimen: [id number] Collected: 01/01/17 Status: RES Req#: [id number] Received: 01/01/17 Source: BLOOD Sp Desc : ERIC Phillips Dr: Cheyanne,Neal Bustillos MD Ordered: ACACIA Comments: Collected by Nurse/Unit? Y/N N Procedure Result Verified Site Microbiology JUMANA CULTURE BLOOD Preliminary 01/02/17-1038 Organism 1 POSITIVE BLOOD CULTURE GRAM STAIN RESULT GRAM NEGATIVE RODS BC BOTTLE Isolated from Aerobic Bottle of Set Drawn DATE CALLED: 01/02/17 TIME CALLED: 317 CALLED BY: RODOLFO FLOOR/DOCTOR: DAMIR ROGER READ BACK YES TYPE OF DRAW PERIPHERAL DRAW TIME OF POSITIVITY 0300 Cardiac Echo Impressions PROCEDURE: X-RAY CHEST ONE VIEW, PORTABLE ([id number]) INDICATIONS: Possible aspiration Pneumonitis TECHNIQUE: One view of the chest was acquired. COMPARISON: [facility], CR, XR CHEST 1VW (PORTABLE), 01/01/2017, 9: 52. FINDINGS: Surgical changes and devices: None. Lungs and pleura: No pleural effusions or pneumothorax. Lungs are clear. Mediastinum: Mediastinal contours appear normal. Heart size is enlarged. Bones and chest wall: No suspicious bony lesions. Overlying soft tissues appear unremarkable. IMPRESSION: No acute cardiopulmonary disease. Dictated by: Noel GREEN Interpreted: Tuyet Carreon MD on 01/02/2017 at 8: 42 Transcribed by: LILLIE on 01/02/2017 at 8:42 Assessment & Plan The patient is a 71-year-old obese white female with history of type II diabetes mellitus and nonalcoholic steatohepatitis who has been having generalized weakness for approximately 1 week. She also has been complaining of headache, nonproductive cough, mild back pain, mild neck pain on the sides of her neck, myalgias, chills, nausea and vomiting without any hematemesis. She also complains of some diarrhea without any hematochezia or melena 3 times a day. She has no abdominal pain, no chest pain, no dysuria. He has also been short of breath mostly at night. Patient fell out of bed this morning and could not get up. Her called 911 and she was brought to [facility] emergency room by EMS services. She was evaluated by Dr. Neal Edward who performed a urinalysis which showed greater than 50 white blood cells per power field moderate leukocyte esterase and positive nitrite. The patient's serum white blood cell count was elevated at 10.6 and the patient continued to have high fever. The patient therefore was admitted to the hospitalist service for further evaluation and treatment. 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 Active This would explain the ongoing fever even after receiving antibiotics since admission. - Infection was present at the time of admission and is ongoing - We will discontinue cefepime and start ertapenem. - We have checked serial lactic acid levels - We gave Gentle IV hydration due to patient's age and elevated BNP at baseline. However, patient is eating and drinking better now and we can discontinue her IV fluids. - Consult Dr. Jorge Dominguez of infectious disease. # Hyponatremia, present at the time of admission. Improving/resolved - Present at the time of admission - Patient had a sodium level of 121 the last admission and it is 128 this admission. Now sodium has normalized. - We have continued IV fluids since admission until discontinued on 01/04/2017. - Check labs in a.m. and continue to closely monitor patient's electrolytes # Nonalcoholic steatohepatitis with cirrhosis. - Avoid hepatotoxic medications. - Monitor liver function tests closely # Type II diabetes mellitus present time of admission and ongoing hypoglycemia at the time of admission with a blood sugar 46 on the floor. - Sliding-scale insulin coverage ordered for blood sugars before meals and at bedtime - Continue home medications when blood sugar is more stable - Check hemoglobin A1c - 1 amp of D50 given after her blood sugar was found to be 46. # Disposition: Patient will likely be hospitalized for another 24 hours for continued evaluation and treatment of the above problem. We will discontinue telemetry monitoring. Consulted Dr. Jorge Dominguez of infectious disease and will await his recommendations. Pain Evaluation: Adequate Pain Control GI Prophylaxis: Proton Pump Inhibitor VTE Prophylaxis: Sub-Q Enoxaparin VTE Mechanical Devices: Intermittant Pneumatic CD Resuscitation Status: CPR: Attempt Resuscitation Artis Martinez MD January 06, 2017 01:52
[2017-01-06 05:38] LABS: Mean Corpuscular Hemoglobin 31.2 pg (27.0-35.0); Mean Corpuscular Volume 91.9 fL (81-100); Platelet Count 257 bil/L (150-400)
[2017-01-06 05:56] LABS: NEUTROPHILS % (AUTO) 66 % (40-74)
[2017-01-06 05:57] LABS: BASOPHILS % (AUTO) 2 % (0-3); EOSINOPHILS % (AUTO) 0 % (0-5); MONOCYTES % (AUTO) 11 % (4-12)
[2017-01-06 05:58] VITALS: BP 170/89; PULSE 75; RESP 18; O2SAT 95
--- NOTE | 2017-01-06 06:17 | NUR ---
NOC Note: Gauze dressing changed under medial abdominal fold at HS, minimal amount sero sanguineous drainage noted from wound. Getting up to the bathroom independently through the night. Stated able to get a little more sleep tonight. Pt was able to discuss the tentative plan of care with RN, awaiting Dr. Dominguez consult today.
[2017-01-06 06:19] LABS: Magnesium 1.6 mg/dL (1.6-2.6)
[2017-01-06] MEDS: Pantoprazole 40 mg ER24 Tablet PO SCH (08:27)
[2017-01-06] MEDS: Insulin Human REGular 300 Unit/3 mL Inj SUBQ SCH ×4 (08:28→21:05)
[2017-01-06] MEDS: Nystatin 100,000 Unit/Gm 15 Gm Powder TOPICAL SCH ×2 (08:28→21:05)
[2017-01-06] MEDS: Ertapenem Inj 1,000 MG in 0.9% Sodium Chloride 50 ML IV SCH (08:28)
[2017-01-06] MEDS ORDERED: 0.9% Sodium Chloride 250 ML ONE (09:06)
--- NOTE | 2017-01-06 12:07 | PCM.PNMED ---
Subjective Date of Service January 06, 2017 Subjective Patient is fully alert and oriented Denied any complaints No event overnight at the bedside verify that patient is in baseline MS no ORANTES, dizziness, denied dysuria, back pain, still weak but stronger than before explained hospital course, pt seemed to understand Exam Vital Signs Vital Sign - Last Date Time Temp Pulse Resp B/P Pulse Ox O2 Delivery O2 Flow Rate FiO2 01/06/17 05:58 36.7 75 18 170/89 95 Room Air Intake and Output 01/05/17 01/05/17 01/06/17 Cumulative From/Thru 15:00 23:00 07:00 01/01/17 09:05 - 01/05/17 19:26 Intake Total 75 ml 700 ml 33431 ml Output Total 1300 ml 46803 ml Balance 75 ml -600 ml -20 ml Intake Oral 700 ml 7229 ml IV Total 75 ml 7051 ml Output Urine Total 1300 ml 47110 ml # Voids 5 # Bowel Movements 0 1 Exam Obese elderly female NAD, comfortably laying down on the bed no JVD, MMM, no LAD RRR, nl s1, s2 no mrg CTAB, no w,c S,ND,NT,normoactive BS+ warm, no edema, pulses 2/2 IVs and Medications Medications Reviewed: Medications were reviewed in detail Lab and Diagnostics Result Diagram: 01/06/1751901/06/17519 Microbiology Blood and urine cultures are positive for extended spectrum beta lactamase resistant Escherichia coli Specimen: [id number] Collected: 01/01/17 Status: RES Req#: [id number] Received: 01/01/17 Source: BLOOD Sp Desc : AA Subm Dr: Neal Edward MD Ordered: ACACIA Comments: Collected by Nurse/Unit? Y/N N Procedure Result Verified Site Microbiology JUMANA CULTURE BLOOD Preliminary 01/03/17-0741 Organism 1 E. COLI ESBL PHYSICIAN SPECIALIST GRAM STAIN RESULT GRAM NEGATIVE RODS BC BOTTLE Isolated from Aerobic Bottle of Set Drawn DATE CALLED: 01/02/17 TIME CALLED: 317 CALLED BY: RODOLFO FLOOR/DOCTOR: DAMIR Bustillos BC READ BACK YES TYPE OF DRAW PERIPHERAL DRAW TIME OF POSITIVITY 030 PLEASE NOTE This isolate has developed multiple resistance mechanisms to various classes of antibiotics. Consider Contact isolation precautions for in-patients. Contact Pharmacy. Consider Infectious Disease Specialist Consultation. Called to [facility] infection control 0745 01/03/17 and to Sonali HARPER nurse. 1. E. COLI ESBL PHYSICIAN SPECIALIST Julio Interp --------- ------ * AMIKACIN 16 S * AMPICILLIN >=32 R * AMPICILLIN/SULBACTAM >=32 R * CEFAZOLIN >=64 R * CEFEPIME R * CEFOXITIN <=4 S * CEFTRIAXONE >=64 R * ERTAPENEM <=0.5 S * GENTAMICIN >=16 R * MEROPENEM <=0.25 S * TOBRAMYCIN >=16 R * TRIMETHOPRIM/SULFAMETHOXAZOLE <=20 S CONTINUED ON NEXT PAGE RUN DATE: 01/03/17 [facility] LIVE PAGE 2 RUN TIME: 741 Specimen Inquiry PHYSICIAN Patient: YOAN DE LA CRUZ [id number] (Continued) Specimen: [id number] Collected: 01/01/17-1040 Received: 01/01/17-1100 (Continued) Procedure Result Verified Site JUMANA CULTURE BLOOD Preliminary (continued) 01/03/17-740 1. E. COLI ESBL PHYSICIAN SPECIALIST (continued) M.I.C Interp --------- ------ * PIPERACILLIN/TAZOBACTAM 8 S X-Rays, CTs and MRIs PROCEDURE: X-RAY CHEST ONE VIEW, PORTABLE ([id number]) INDICATIONS: dyspnea TECHNIQUE: One view of the chest was acquired. COMPARISON: [facility], CR, XR ABD ACUTE SERIES 3VW, 11/20/2016, 12 :57. FINDINGS: Surgical changes and devices: None. Lungs and pleura: There has been interval development of a vague density within the left lung, which is fairly diffuse. The pulmonary vasculature is prominent. Mediastinum: Mediastinal contours appear normal. Heart size is enlarged. Bones and chest wall: No suspicious bony lesions. Overlying soft tissues appear unremarkable. IMPRESSION: 1. Pulmonary vascular congestion. 2. Cardiomegaly. 3. Vague diffuse density within the left hemithorax may be related to superimposed breast tissue. However, a pleural effusion may have this appearance. Standard upright 2 views of the chest would be helpful for better evaluation. Dictated by: Ethan Poole M.D. on 01/01/2017 at 9:20 Approved by: Ethan Poole M.D. on 01/01/2017 at 9:21 Name: YOAN DE LA CRUZ Age/Sex: 71/F Attend Dr: Artis Martinez Acct: [id number] Unit: [id number] Status: ADM [place] [facility] [place]1 Re01/01/17 Disch: Specimen: [id number] Collected: 01/01/17 Status: RES Req#: [id number] Received: 01/01/17 Source: BLOOD Sp Desc : ERIC Phillips Dr: Neal Edward MD Ordered: ACACIA Comments: Collected by Nurse/Unit? Y/N N Procedure Result Verified Site Microbiology JUMANA CULTURE BLOOD Preliminary 01/02/17-1038 Organism 1 POSITIVE BLOOD CULTURE GRAM STAIN RESULT GRAM NEGATIVE RODS BC BOTTLE Isolated from Aerobic Bottle of Set Drawn DATE CALLED: 01/02/17 TIME CALLED: 317 CALLED BY: RODOLFO FLOOR/DOCTOR: DAMIR ROGER READ BACK YES TYPE OF DRAW PERIPHERAL DRAW TIME OF POSITIVITY 0300 Cardiac Echo Impressions PROCEDURE: X-RAY CHEST ONE VIEW, PORTABLE ([id number]) INDICATIONS: Possible aspiration Pneumonitis TECHNIQUE: One view of the chest was acquired. COMPARISON: [facility], CR, XR CHEST 1VW (PORTABLE), 01/01/2017, 9: 52. FINDINGS: Surgical changes and devices: None. Lungs and pleura: No pleural effusions or pneumothorax. Lungs are clear. Mediastinum: Mediastinal contours appear normal. Heart size is enlarged. Bones and chest wall: No suspicious bony lesions. Overlying soft tissues appear unremarkable. IMPRESSION: No acute cardiopulmonary disease. Dictated by: Noel GREEN Interpreted: Tuyet Carreon MD on 01/02/2017 at 8: 42 Transcribed by: LILLIE on 01/02/2017 at 8:42 Assessment & Plan The patient is a 71-year-old obese white female with history of type II diabetes mellitus and nonalcoholic steatohepatitis who has been having generalized weakness for approximately 1 week. She also has been complaining of headache, nonproductive cough, mild back pain, mild neck pain on the sides of her neck, myalgias, chills, nausea and vomiting without any hematemesis. She also complains of some diarrhea without any hematochezia or melena 3 times a day. She has no abdominal pain, no chest pain, no dysuria. He has also been short of breath mostly at night. Patient fell out of bed this morning and could not get up. Her called 911 and she was brought to [facility] emergency room by EMS services. She was evaluated by Dr. Neal Edward who performed a urinalysis which showed greater than 50 white blood cells per power field moderate leukocyte esterase and positive nitrite. The patient's serum white blood cell count was elevated at 10.6 and the patient continued to have high fever. The patient therefore was admitted to the hospitalist service for further evaluation and treatment. 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 Active This would explain the ongoing fever even after receiving antibiotics since admission. -BCX+ 01/01 also grew ESBL 2/4bottles, sens to carbapenem, awaits final sensitivity of rest of cultures, repeat BCX 2sets today -s/p cefepime and started ertapenem, clinically improving, appreciate ID input #uncontrolled BP, POA, [id number], asymptomatic, continue home losartan, would consider add CCB if BP remains uncontrolled. # Hyponatremia, present at the time of admission. Improving/resolved - Present at the time of admission - Patient had a sodium level of 121 the last admission and it is 128 this admission. Now sodium has normalized. - We have continued IV fluids since admission until discontinued on 01/04/2017. - Check labs in a.m. and continue to closely monitor patient's electrolytes # Nonalcoholic steatohepatitis with cirrhosis. - Avoid hepatotoxic medications. - Monitor liver function tests closely # Type II diabetes mellitus present time of admission and ongoing hypoglycemia at the time of admission with a blood sugar 46 on the floor. - Sliding-scale insulin coverage ordered for blood sugars before meals and at bedtime - Continue home medications when blood sugar is more stable - Check hemoglobin A1c - 1 amp of D50 given after her blood sugar was found to be 46. # Disposition: appreciate ID input, likely home with IV abx in 2-3 days GI Prophylaxis: Proton Pump Inhibitor VTE Prophylaxis: Sub-Q Enoxaparin VTE Mechanical Devices: Intermittant Pneumatic CD Resuscitation Status: CPR: Attempt Resuscitation Time spent 35 minutes Emigdio Albarado MD January 06, 2017 12:06
[2017-01-06 14:10] VITALS: BP 165/76; PULSE 79; RESP 18; O2SAT 98
--- NOTE | 2017-01-06 16:38 | NUR ---
SW - Continued discharge planning Per morning rounds pt will likely need IVABX at discharge. SW will continue to follow re: outpt vs home infusion IVABX needs. VANCE Enciso
--- NOTE | 2017-01-06 21:17 | CONS ---
[address] [address] CONSULTATION REPORT PATIENT: YOAN DE LA CRUZ : 1945 MR#: [id number] ADMIT: 01/01/2017 JOB ID: [id number] DATE OF SERVICE: 01/06/[address] Martinez for this timely consult. REASON FOR CONSULTATION: Bacteremic E. coli pyelonephritis. 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 She was in her usual state of health and actively practicing her profession until about December 29 when she developed the gradual onset of generalized weakness, malaise, myalgias, arthralgias, anorexia and eventually urgency and frequency but no dysuria. In association with these symptoms, her said that she was becoming somewhat confused and unable to care for herself. Because of this, she came to the emergency department on the morning of January 01 and was admitted later that day with a presumptive diagnosis of pyelonephritis. The patient was initially started on ceftriaxone, but failed to improve and eventually her blood and urine cultures grew an ESBL E. coli. Once it was recognized that she had a multi-drug resistant pathogen, she was switched to ertapenem and since then has made a brisk recovery with resolution of her fevers, chills, malaise, myalgias, arthralgias, urgency and frequency. At this point, she feels like she is approaching her normal state of health except for being a bit weak and would like to go home and get back to work. ID consultation is requested regarding management of this multidrug-resistant bacteremic isolette. PAST MEDICAL HISTORY: 1. Diabetes mellitus with good control. 2. Nonalcoholic steatohepatitis with apparent cirrhosis for which she is followed at [facility]. 3. History of hyponatremia. 4. Status post appendectomy. 5. Morbid obesity. SOCIAL HISTORY: The patient is an occasional drinker of wine. She is not a cigarette smoker though she quit 45 years ago after a history of fairly heavy smoking. 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 FAMILY HISTORY: Negative for tuberculosis in first and second-degree relatives. REVIEW OF SYSTEMS: This afternoon, the patient tells us she feels reasonably well. She did have some headache apparently at the onset of this illness. It has now resolved. She has no intraoral complaints. No sore throat. No significant cough or chest pain. She did have anorexia when this started but no longer has any GI symptoms. Her appetite has returned to normal. She did have significant urgency and frequency and these are both improving. At no point though did she have dysuria. She mentioned myalgias and arthralgias initially, and these are resolved as well. Please amend the earlier part as she had did not have nausea or vomiting though she did have anorexia, but she did have a bit of diarrhea which has also resolved. There has been no skin rash. No swelling of the joints. No difficulty with ambulation. The rest of review of symptoms is negative. PHYSICAL EXAM: Put reveals an afebrile woman. She was febrile to 39.5 on her first day in the hospital and stayed febrile for a little over two days. She has since been completely afebrile, temp 36.4. Pulse 79, respiratory rate 18, blood pressure 165/76, saturating well on room air. No acute distress. Head without trauma. Eyes without conjunctivitis. Oral cavity, no thrush or hairy leukoplakia. Neck is supple without adenopathy. Lungs are clear. Cardiac tones: Regular rate and rhythm. Abdomen: Obese, soft, and nontender. Note that her BMI is 46, so morbid obesity should be added to her problem list. No hepatosplenomegaly, no ascites that I can discern. She does not have a Delvalle catheter. She does not have any notable peripheral adenopathy in the neck or the groin. No skin rashes noted. No peripheral edema. She has reasonable perfusion of her hands and feet. No synovitis and no focal neurologic findings. LABORATORIES: Include white count 6600, normal diff, creatinine is 0.68. AST is 59, ALT 80, alk phos 251, procalcitonin 1.01 and that was from today. Urinalysis greater than 50 white cells, no red cells. The urine culture grew an ESBL E. coli sensitive to Bactrim, nitrofurantoin and Carboplatinum and nothing else. The blood and urine both had essentially the same ESBL organism. Follow-up blood cultures were drawn at noon and they are pending. Radiographs include chest x-ray which was negative for pneumonia. Ultrasound of the kidneys which showed no evidence for pyelonephrosis. IMPRESSION: This well-controlled diabetic woman with underlying nonalcoholic steatohepatitis presents with bacteremic extended-spectrum beta lactamase Escherichia coli pyelonephritis. This is becoming an epidemic across [place] and now the [place] represents a major problem in turns of caring for patients when they are ready for discharge. The patient has responded well to ertapenem 1 g once a day, and I think that is a reasonable way to finish about 10 days of therapy. The only other option we have here would be to switch to Bactrim in fairly significant doses, and I think the risks probably exceed the benefits in this elderly woman. High-dose Bactrim has been associated with excess in elderly patients due to hyperkalemia and renal failure. I personally have seen this occur and am reluctant to switch therapy. RECOMMENDATIONS: 1. Will continue with ertapenem 1 g IV once a day through January 12. 2. The patient and her have indicated they would like [place] that [place] [facility] [place] [facility] here at [facility]. 3. I will write the appropriate orders to facilitate setting this up, and I think the patient could be discharged tomorrow, January 07, if she is stable overnight to start receiving the IV antibiotics and get those January 08 through at the [facility]. 4. No particular additional labs will be needed to follow her course as she is already quite stable. 5. Should the patient develop any additional UTIs, consultation with Urology would be indicated. Thank you very much for this interesting consult.
[2017-01-06 21:50] VITALS: BP 176/82; PULSE 76; RESP 18; O2SAT 98
[2017-01-07 01:18] VITALS: BP 169/84; PULSE 76; RESP 18; O2SAT 94
[2017-01-07 05:45] VITALS: BP 167/82; PULSE 74; RESP 18; O2SAT 94
[2017-01-07 05:48] LABS: BASOPHILS % (AUTO) 0.3 % (0-3); EOSINOPHILS % (AUTO) 2.6 % (0-5); MONOCYTES % (AUTO) 9.5 % (4-12); Mean Corpuscular Hemoglobin 30.8 pg (27.0-35.0); Mean Corpuscular Volume 92.3 fL (81-100); NEUTROPHILS % (AUTO) 65.2 % (40-74); Platelet Count 281 bil/L (150-400)
--- NOTE | 2017-01-07 05:57 | NUR ---
Uneventful night: Pt able to get more sleep through the night. Gauze dressing changed at HS under medial abdominal fold, no drainage noted to old gauze. Anticipating discharge today.
[2017-01-07 06:18] LABS: Magnesium 1.5 mg/dL (1.6-2.6); Phosphorus 3.6 mg/dL (2.5-4.9)
[2017-01-07] MEDS: Ertapenem Inj 1,000 MG in 0.9% Sodium Chloride 50 ML IV SCH (09:17)
[2017-01-07] MEDS: Pantoprazole 40 mg ER24 Tablet PO SCH (09:18)
[2017-01-07] MEDS: Insulin Human REGular 300 Unit/3 mL Inj SUBQ SCH (09:19)
[2017-01-07] MEDS: Nystatin 100,000 Unit/Gm 15 Gm Powder TOPICAL SCH (09:19)
--- NOTE | 2017-01-07 10:25 | PCM.DIMED ---
Discharge Instructions Date of Service January 07, 2017 Dates of Hospitalization Jan 01, 2017 at 14:40 Discharge Diagnosis Discharge Diagnosis ESBL pyelonephritis, bacteremia Medication Instructions Please note that you should come to the hospital, MOC unit, second floor for antibiotic infusion. Ertapenem 1g iv will be continued in MOC unit until 01/12 Diet No restrictions Activity No restrictions Patient Instructions you were hospitalized with confusion, weakness, found to have urinary tract infection due to resistant E.coli. You were treated appropriately with antibiotics. Please follow medicine instruction as above. Please follow up with your primary doctor in 2weeks after you finish the course of antibiotics. Follow-up Provider: Catherine Cuellar MD Follow-up with PCP in: 2 weeks Emigdio Albarado MD January 07, 2017 10:25
--- NOTE | 2017-01-07 10:44 | PROG NOTE ---
[address] [address] PROGRESS NOTE PATIENT: YOAN DE LA CRUZ : 1945 MR#: [id number] ADMIT: 01/01/2017 JOB ID: [id number] DATE: 01/07/2017 REASON FOR FOLLOW UP: Complicated urinary tract infection with ESBL E. coli bacteremia. INTERVAL HISTORY: Overnight, the patient has felt relatively well. She slept well and denies fevers chills, sweats. No significant cough, shortness of breath, chest pain, nausea, vomiting, or diarrhea. She is not having dysuria, but she did have some urinary urgency. PHYSICAL EXAMINATION: Reveals a morbidly obese afebrile comfortable woman. Temp 36.9. She has been afebrile now for 4 days basically. Pulse 74, respiratory rate 18, blood pressure 167/82. She is saturating well on room air. Mental status reveals to be clear. Lungs clear. Cardiac tones regular, no new murmur. Abdomen obese, soft, nontender. No flank tenderness. LABORATORIES: Include white count 6200, normal diff today. Creatinine 0.63. Alk phos is 261 and slowly falling. ALT 64, albumin 2.7. Procalcitonin has dropped by half from yesterday. It is 1 yesterday, 0.5 today, which is an excellent and expected trend. We have no new cultures. Recall the blood and urine both grew the ESBL E. coli. Followup blood cultures done yesterday remain negative. IMPRESSION: This is a 71-year-old woman who was admitted with bacteremic pyelonephritis secondary to extended-spectrum beta-lactamases Escherechia coli. She has had an excellent response to intravenous ertapenem and is now essentially ready for discharge. No difficulties are anticipated with her outpatient therapy, but I would give the patient my card and asked her to call me if there was any trouble. RECOMMENDATIONS: 1. The patient is ready for discharge with peripheral IV to receive ertapenem 1 g IV daily through January 12. 2. The patient will be receiving this therapy on the [facility]. 3. No additional labs are needed. 4. Should the patient have any additional genitourinary infections or problems, she should follow up with Urology. Thank you very much. ID will sign off at this time.
--- NOTE | 2017-01-07 11:23 | NUR ---
Discharge IV discontinued fully intact. Confirmed with MOC of appointments for infusions that are set up for 0800 starting tomorrow. All personal belongings given to patient. Discharge instructions explained to patient and spouse who both verbalize understanding and agree to plan of care. Patient brought down to car via
--- NOTE | 2017-01-07 15:51 | NUR ---
Social Work: Discharge Data: EMR reviewed. Patient is on day 6 of hospitalization for weakness and UTI per H&P. Pt is medically cleared for discharge with IV antibiotics outpatient [place] [facility] SW contacted [facility] to confirm pt is on their schedule. Patient does not have any further discharge needs at this time and will discharge via family in POV. Assessment: Pt who is independent at baseline Plan: Patient to discharge home no needs via POV with outpatient IVABX at [facility] VANCE Enciso
--- NOTE | 2017-01-08 12:19 | PCM.DC.MED ---
Discharge Summary Date of Service Jan 07 2017 Dates of Hospitalization Date of Hospital Admission Jan 01, 2017 at 14:40 Date of Discharge: January 07, 2017 Providers: Admitting Physician: Artis Martinez MD Primary Care Physician: Catherine Cuellar MD Attending Physician: Artis Martinez MD Diagnosis at Time of Discharge Diagnosis at Time of Discharge acute problem ESBL pyelonephritis, bacteremia uncontrolled HTN Hyponatremia chronic problems Nonalcoholic steatohepatitis with cirrhosis. Type II diabetes mellitus present time of admission Procedures Cardiac Echo Impression PROCEDURE: X-RAY CHEST ONE VIEW, PORTABLE ([id number]) INDICATIONS: Possible aspiration Pneumonitis TECHNIQUE: One view of the chest was acquired. COMPARISON: [facility], CR, XR CHEST 1VW (PORTABLE), 01/01/2017, 9: 52. FINDINGS: Surgical changes and devices: None. Lungs and pleura: No pleural effusions or pneumothorax. Lungs are clear. Mediastinum: Mediastinal contours appear normal. Heart size is enlarged. Bones and chest wall: No suspicious bony lesions. Overlying soft tissues appear unremarkable. IMPRESSION: No acute cardiopulmonary disease. Dictated by: Noel Martinez RRA Interpreted: Tuyet Carreon MD on 01/02/2017 at 8: 42 Transcribed by: LILLIE on 01/02/2017 at 8:42 Other Diagnostics Microbiology JUMANA CULT URINE Final 01/03/17 Organism 1 E. COLI ESBL DATA MODELING SPECIALIST U COLONY COUNT/QUANTITY >100,000 CFU/ml PLEASE NOTE This isolate has developed multiple resistance mechanisms to various classes of antibiotics. Consider Contact isolation precautions for in-patients. Contact Pharmacy. Consider Infectious Disease Specialist Consultation. Called to [facility] infection control at 0740 and to Sonali Cano [facility] floor nurse. 1. E. COLI ESBL DATA MODELING SPECIALIST M.I.C Interp --------- ------ * AMOXICILLIN/CLAVULATE 16 I * AMPICILLIN >=32 R * CEFAZOLIN >=64 R * CEFEPIME R * CEFTRIAXONE >=64 R * CEFUROXIME SODIUM >=64 R * CIPROFLOXACIN >=4 R * ERTAPENEM <=0.5 S * GENTAMICIN >=16 R * IMIPENEM <=1 S * LEVOFLOXACIN >=8 R * NITROFURANTOIN <=16 S * TETRACYCLINE >=16 R * TOBRAMYCIN >=16 R * TRIMETHOPRIM/SULFAMETHOXAZOLE <=20 S END OF REPORT Microbiology JUMANA CULTURE BLOOD Final 01/06/17-0637 Organism 1 E. COLI ESBL DATA MODELING SPECIALIST GRAM STAIN RESULT GRAM NEGATIVE RODS BC BOTTLE Isolated from Aerobic Bottle of Set Drawn DATE CALLED: 01/02/17 TIME CALLED: 317 CALLED BY: RODOLFO FLOOR/DOCTOR: DAMIR Bustillos BC READ BACK YES TYPE OF DRAW PERIPHERAL DRAW TIME OF POSITIVITY 0300 ISOLATED FROM TWO OF FOUR BOTTLES COLLECTED 01/01/17 PLEASE NOTE This isolate has developed multiple resistance mechanisms to various classes of antibiotics. Consider Contact isolation precautions for in-patients. Contact Pharmacy. Consider Infectious Disease Specialist Consultation. Called to [facility] infection control 0745 01/03/17 and to Sonali Cano [facility] nurse. 1. E. COLI ESBL DATA MODELING SPECIALIST Julio Interp --------- ------ * AMIKACIN 16 S * AMPICILLIN >=32 R * AMPICILLIN/SULBACTAM >=32 R * CEFAZOLIN >=64 R * CEFEPIME R * CEFOXITIN <=4 S * CEFTRIAXONE >=64 R * ERTAPENEM <=0.5 S * GENTAMICIN >=16 R * MEROPENEM <=0.25 S CONTINUED ON NEXT PAGE RUN DATE: 01/06/17 [facility] LIVE PAGE 2 RUN TIME: 637 Specimen Inquiry PHYSICIAN Patient: YOAN DE LA CRUZ [id number] (Continued) Specimen: [id number] Collected: 01/01/17 Received: 01/01/17-1099 (Continued) Procedure Result Verified Site JUMANA CULTURE BLOOD Final (continued) 01/06/17-636 1. E. COLI ESBL DATA MODELING SPECIALIST (continued) Julio Rai --------- ------ * TOBRAMYCIN >=16 R * TRIMETHOPRIM/SULFAMETHOXAZOLE <=20 S * PIPERACILLIN/TAZOBACTAM 8 S Brief History HPI obtained by on 01/01 The patient is a 71-year-old obese white female with history of type II diabetes mellitus and nonalcoholic steatohepatitis who has been having generalized weakness for approximately 1 week. She also has been complaining of headache, nonproductive cough, mild back pain, mild neck pain on the sides of her neck, myalgias, chills, nausea and vomiting without any hematemesis. She also complains of some diarrhea without any hematochezia or melena 3 times a day. She has no abdominal pain, no chest pain, no dysuria. He has also been short of breath mostly at night. Patient fell out of bed this morning and could not get up. Her called 911 and she was brought to [facility] emergency room by EMS services. She was evaluated by Dr. Neal Edward who performed a urinalysis which showed greater than 50 white blood cells per power field moderate leukocyte esterase and positive nitrite. The patient's serum white blood cell count was elevated at 10.6 and the patient continued to have high fever. The patient therefore was admitted to the hospitalist service for further evaluation and treatment. Hospital Course The patient is a 71-year-old obese white female with history of type II diabetes mellitus and nonalcoholic steatohepatitis who has been having generalized weakness for approximately 1 week. She also has been complaining of headache, nonproductive cough, mild back pain, mild neck pain on the sides of her neck, myalgias, chills, nausea and vomiting without any hematemesis. She also complains of some diarrhea without any hematochezia or melena 3 times a day. She has no abdominal pain, no chest pain, no dysuria. He has also been short of breath mostly at night. Patient fell out of bed this morning and could not get up. Her called 911 and she was brought to [facility] emergency room by EMS services. She was evaluated by Dr. Neal Edward who performed a urinalysis which showed greater than 50 white blood cells per power field moderate leukocyte esterase and positive nitrite. The patient's serum white blood cell count was elevated at 10.6 and the patient continued to have high fever. The patient therefore was admitted to the hospitalist service for further evaluation and treatment. # Urinary tract infection with sepsis secondary to extended spectrum beta- lactamase resistant Escherichia coli. This would explain the ongoing fever even after receiving antibiotics since admission. BCX+ 01/01 also grew ESBL 2/4bottles , sens to carbapenem, pt was on cefepime, then switched to ertapenem, clinically stable, plan was to continue ertapenem 1g daily in MOC to finish thru 01/12. #uncontrolled BP, POA, [id number], asymptomatic, continued home losartan, would consider second agent if BP remains high # Hyponatremia, present at the time of admission. Patient had a sodium level of 121 the last admission and it is 128 this admission. resolved with IVF # Nonalcoholic steatohepatitis with cirrhosis. stable # Type II diabetes mellitus present time of admission, had episode of hypoglycemia, resolved with D50. Exam Vital Signs (Last) Date Time Temp Pulse Resp B/P Pulse Ox O2 Delivery O2 Flow Rate FiO2 01/07/17 05:45 36.9 74 18 167/82 94 Room Air Exam NAD, comfortably laying down on the bed no JVD, MMM, no LAD RRR, nl s1, s2 no mrg CTAB, no w,c S,ND,NT,normoactive BS+ warm, no edema, pulses 2/2 Test 01/01/17 09:43 01/01/17 11:05 01/01/17 11:47 01/02/17 05:40 Prothrombin Time 10.6sec (8.1-12.5) Prothromb Time International Ratio 0.99ratio Hemoglobin A1c 5.7% (4.8-5.6) Troponin T < 0.010ug/L (0.0-0.011) Lipase 39U/L (13-60) Lactic Acid Level 0.8mmol/L (0.4-2.0) Urine Color Yellow (YELLOW) Urine Appearance Slightly cloudy Urine pH 6.0 (5.0-8.0) Urine Specific [place] 1.010 (1.003-1.035) Urine Protein 30mg/dL (NEG,TRACE) Urine Glucose (UA) Negativemg/dL (NEGATIVE) Urine Ketones Negativemg/dL (NEGATIVE) Urine Occult Blood Moderate (NEGATIVE) Urine Nitrite Positive (NEGATIVE) Urine Bilirubin Negative (NEGATIVE) Urine Urobilinogen Normalmg/dL (NORMAL) Urine Leukocyte Esterase Moderate (NEGATIVE) Urine RBC 0-2/hpf (0-2) Urine WBC >50/hpf (0-5) Urine Epithelial Cells Few/hpf (NONE-MOD) Urine Crystals None seen (NONE SEEN) Urine Bacteria Many/hpf (NONE-FEW) Urine Hyaline Casts None/lpf (NONE) Urine Granular Casts None seen (NONE SEEN) Urine Waxy Casts None seen (NONE SEEN) Urine Red Blood Cell Casts None seen (NONE SEEN) Urine White Blood Cell Casts None seen (NONE SEEN) Urine Mucus None seen (None Seen) Urine Trichomonas None seen (NONE SEEN) Urine Yeast None (NONE SEEN) Urinalysis Comment None Urine Culture Reflexed Indicated Thyroid Stimulating Hormone (TSH) 1.450uIU/mL (0.450-4.500) Test 01/05/17 05:15 01/06/17 05:20 01/07/17 05:30 Pro-B-Type Natriuretic Peptide 599.3pg/mL (0-301) Band Neutrophils % 0% (1-5) White Blood Count 6.2th/mm3 (3.8-10.1) Red Blood Count 3.51mil/mm3 (3.90-5.20) Hemoglobin 10.8g/dL (12.0-15.6) Hematocrit 32.4% (35.0-46.0) Mean Corpuscular Volume 92.3fL (81-100) Mean Corpuscular Hemoglobin 30.8pg (27.0-35.0) Mean Corpuscular Hemoglobin Concent 33.3% (32.0-37.0) Red Cell Distribution Width 14.9% (12.3-15.4) Platelet Count 281bil/L (150-400) Neutrophils (%) (Auto) 65.2% (40-74) Lymphocytes (%) (Auto) 20.6% (14-46) Monocytes (%) (Auto) 9.5% (4-12) Eosinophils (%) (Auto) 2.6% (0-5) Basophils (%) (Auto) 0.3% (0-3) Sodium Level 136mEq/L (134-144) Potassium Level 4.1mEq/L (3.5-5.2) Chloride Level 101mEq/L (97-108) Carbon Dioxide Level 22mmol/L (18-29) Blood Urea Nitrogen 12mg/dL (8-27) Creatinine 0.63mg/dL (0.57-1.00) Estimat Glomerular Filtration Rate 133mL/min (>59) Glucose Level 158mg/dL (60-99) Calcium Level 9.0mg/dL (8.5-10.1) Phosphorus Level 3.6mg/dL (2.5-4.9) Magnesium Level 1.5mg/dL (1.6-2.6) Total Bilirubin 0.8mg/dL (0.0-1.2) Aspartate Amino Transf (AST/SGOT) 44U/L (0-50) Alanine Aminotransferase (ALT/SGPT) 64U/L (0-32) Alkaline Phosphatase 261U/L (25-165) Total Protein 6.9g/dL (6.4-8.4) Albumin 2.7g/dL (3.4-5.0) Procalcitonin 0.55ng/mL (0.00-0.08) Microbiology Results Blood and urine cultures are positive for extended spectrum beta lactamase resistant Escherichia coli Specimen: [id number] Collected: 01/01/17 Status: RES Req#: [id number] Received: 01/01/17 Source: BLOOD Sp Desc : AA Alan Dr: Neal Edward MD Ordered: Comments: Collected by Nurse/Unit? Y/N N Procedure Result Verified Site Microbiology JUMANA CULTURE BLOOD Preliminary 01/03/177041 Organism 1 E. COLI ESBL DATA MODELING SPECIALIST GRAM STAIN RESULT GRAM NEGATIVE RODS BC BOTTLE Isolated from Aerobic Bottle of Set Drawn DATE CALLED: 01/02/17 TIME CALLED: 317 CALLED BY: RODOLFO FLOOR/DOCTOR: DAMIR Bustillos BC READ BACK YES TYPE OF DRAW PERIPHERAL DRAW TIME OF POSITIVITY 299 PLEASE NOTE This isolate has developed multiple resistance mechanisms to various classes of antibiotics. Consider Contact isolation precautions for in-patients. Contact Pharmacy. Consider Infectious Disease Specialist Consultation. Called to [facility] infection control 0745 01/03/17 and to Sonali Cano [facility] nurse. 1. E. COLI ESBL DATA MODELING SPECIALIST Apollo.Bernabe Interp --------- ------ * AMIKACIN 16 S * AMPICILLIN >=32 R * AMPICILLIN/SULBACTAM >=32 R * CEFAZOLIN >=64 R * CEFEPIME R * CEFOXITIN <=4 S * CEFTRIAXONE >=64 R * ERTAPENEM <=0.5 S * GENTAMICIN >=16 R * MEROPENEM <=0.25 S * TOBRAMYCIN >=16 R * TRIMETHOPRIM/SULFAMETHOXAZOLE <=20 S CONTINUED ON NEXT PAGE RUN DATE: 01/03/17 [facility] LIVE PAGE 2 RUN TIME: 741 Specimen Inquiry PHYSICIAN Patient: YOAN DE LA CRUZ [id number] (Continued) Specimen: [id number] Collected: 01/01/17-1040 Received: 01/01/17-1099 (Continued) Procedure Result Verified Site JUMANA CULTURE BLOOD Preliminary (continued) 01/03/17 1. E. COLI ESBL DATA MODELING SPECIALIST (continued) Julio Interp --------- ------ * PIPERACILLIN/TAZOBACTAM 8 S Discharge Medications Discharge Medications Cholecalciferol (Vitamin D3) (Vitamin D3) 5,000 Unit Capsule 5,000 UNIT PO WILMA SAINI (Reported) Glipizide (Glipizide) 10 Mg Tablet 10 MG PO BIDWM (Reported) Losartan Potassium (Cozaar) 100 Mg Tablet 100 MG PO DAILY (Reported) Metformin (Metformin) 500 Mg Tablet 1,500 MG PO DAILYWD (Reported) Metformin (Metformin) 500 Mg Tablet 1,000 MG PO DAILYWM (Reported) Pioglitazone (Pioglitazone) 45 Mg Tablet 45 MG PO DAILY (Reported) Rosuvastatin Calcium (Crestor) 10 Mg Tablet 10 MG PO DAILY (Reported) Sitagliptin Phos (Januvia) 100 Mg Tablet 100 MG PO HS (Reported) Vitamin B Complex & Vit C No.3 (B Complex with Vitamin C) 1 Each Capsule 1 EACH PO DAILY (Reported) As needed Acetaminophen (Acetaminophen) 325 Mg Tablet 325-650 MG PO Q4H PRN PRN For Fever (Reported) Carboxymethylcellulos/Glycerin (Refresh Optive Eye Drops) 15 Ml Drops 2 DROP BOTH_EYES Q2H PRN PRN dry eyes (Reported) Additional med instructions Please note that you should come to the hospital, MOC unit, second floor for antibiotic infusion. Ertapenem 1g iv will be continued in MOC unit until 01/12 Followup Plan Disposition: home Discharge Diet: No restrictions Discharge Activity: No restrictions Patient Instructions you were hospitalized with confusion, weakness, found to have urinary tract infection due to resistant E.coli. You were treated appropriately with antibiotics. Please follow medicine instruction as above. Please follow up with your primary doctor in 2weeks after you finish the course of antibiotics. Follow-up Provider: Catherine Cuellar MD Follow-up with PCP in: 2 weeks Time spent 65min Emigdio Albarado MD January 08, 2017 12:19
== END 2017-01-07 11:19 | disposition home or self-care (01) | DRG 872 ==
LOC: EDBD 08:55 → SED 08:55 → MPC 14:40
PROVIDERS: ADMIT Internal Medicine Infectious Disease; ATTEND Internal Medicine Infectious Disease
DX: A41.51 Sepsis due to Escherichia coli [E. coli] (principal); N39.0 Urinary tract infection, site not specified; N10 Acute pyelonephritis; E87.1 Hypo-osmolality and hyponatremia; Z68.42 Body mass index [BMI] 45.0-49.9, adult; Z79.84 Long term (current) use of oral hypoglycemic drugs; E66.09 Other obesity due to excess calories; K75.81 Nonalcoholic steatohepatitis (NASH); E11.649 Type 2 diabetes mellitus with hypoglycemia without coma; B96.20 Unspecified Escherichia coli [E. coli] as the cause of diseases classified elsewhere; Z16.12 Extended spectrum beta lactamase (ESBL) resistance